=== PATIENT | female | born 1950 | race Caucasian/White ===

== ENCOUNTER 2021-01-12 07:31 | Outpatient (REF) | payer MEDICARE, SELFPAY ==
[2021-01-12 11:28] LABS: Glucose Urine UA NEG (NEG); Leukocyte Esterase Urine NEG (NEG); Nitrite Urine NEG (NEG); Specific Gravity - Urine 1.015 (1.005-1.025); Urine Blood 1+ (NEG); Urine Ketones NEG (NEG); Urine Protein NEG (NEG-TRACE)
[2021-01-12 11:29] LABS: Appearance Urine CLEAR; Color Urine YELLOW
[2021-01-12 11:38] LABS: Squamous Epithelial Cell Urine 1+ /LPF; WBC Urine 0 /HPF (0-4)
[2021-01-12 11:39] LABS: Bacteria Urine TRACE /LPF
[2021-01-12 11:46] LABS: Hematocrit 41.2 % (37-47); Hemoglobin 14.2 g/dl (12.0-16.0); Mean Corpuscular HGB Conc 34.5 g/dl (31.0-35.0); Mean Corpuscular Hemoglobin 31.3 pg (27.0-33.0); Mean Corpuscular Volume 90.7 fL (80-98); Mean Platelet Volume 11.9 fL (9.4-12.3); Platelet Count 233 X10*3/uL (160-400); Red Blood Count 4.54 X10*6/uL (4.20-5.50); Red Cell Distribution Width 12.8 % (11.0-16.0); White Blood Count 5.7 X10*3/uL (4.8-10.8)
[2021-01-12 11:56] LABS: Alanine Aminotransferase 29 U/L (0-31); Albumin Level 4.2 g/dL (3.5-5.0); Alkaline Phosphatase 56 U/L (39-117); Anion Gap 14 (12-20); Aspartate Amino Transferase 33 U/L (5-31); Bilirubin Total 0.8 mg/dL (0.0-1.0); Blood Urea Nitrogen 24 mg/dL (9-16); Calcium 9.3 mg/dL (8.4-10.2); Carbon Dioxide 24 mmol/L (22-29); Chloride 101 mmol/L (96-108); Cholesterol 173 mg/dL; Estimated Glomerular Filt Rate > 60; Glucose Fasting 75 mg/dL (60-99); HDL Cholesterol 73 mg/dL; LDL Cholesterol Calculated 90 mg/dl; Potassium 4.3 mmol/L (3.3-5.1); Sodium 135 mmol/L (135-145); Total Protein 6.3 g/dL (6.5-8.0); Triglycerides 54 mg/dL
[2021-01-12 12:20] LABS: TSH reflex Free T4 1.58 uIU/mL (0.32-4.0); Vitamin D 25-OH Total 26.7 ng/mL (>30)
== END 2021-01-12 07:32 | disposition home or self-care (01) ==
LOC: HO.HMGCLDS 07:31
PROVIDERS: PCP Internal Medicine; Visit Provider Internal Medicine
DX: Z00.00 Encounter for general adult medical examination without abnormal findings (principal); E55.9 Vitamin D deficiency, unspecified; E78.5 Hyperlipidemia, unspecified
CPT/HCPCS: 36415; 80053; 80061; 81001; 82306; 84443; 85027

== ENCOUNTER 2021-01-20 10:19 | Outpatient (REF) | payer MEDICARE, SELFPAY ==
--- NOTE | ~2021-01-20 | US_ITS ---
EXAMINATION: US RETROPERITONEAL COMPLETE (RENAL) CLINICAL INFORMATION: Hematuria, unspecified. COMPARISON: None TECHNIQUE: Real-time imaging of the kidneys and bladder. FINDINGS: RIGHT KIDNEY: 10.6 x 4.7 x 6.4 cm (SAG x AP x TRV). The kidney is normal in size, contour, and echogenicity. Renal cortical thickness is normal. No calculi or focal parenchymal lesions. No hydronephrosis. LEFT KIDNEY: 9.9 x 5.6 x 5.2 cm (SAG x AP x TRV). The kidney is normal in size, contour, and echogenicity. Renal cortical thickness is normal. No calculi or focal parenchymal lesions. No hydronephrosis. There are several non shadowing echogenic foci. BLADDER: Well distended and normal. Bilateral ureteral jets are demonstrated. Prevoid bladder volume is 396 mL. Postvoid bladder volume is 26.9 mL. US/US retroperitoneal comp IMPRESSION: Multiple small echogenic non shadowing foci left kidney. Stones or hydronephrosis seen. Small postvoid residual bladder volume. Normal bilateral ureteral jets seen.
== END 2021-01-20 10:20 | disposition home or self-care (01) ==
LOC: HO.HMGCX 10:19
PROVIDERS: Visit Provider Internal Medicine
DX: R31.9 Hematuria, unspecified (principal)
CPT/HCPCS: 76770

== ENCOUNTER 2021-01-21 06:11 | Outpatient (REF) | payer MEDICARE, SELFPAY ==
[2021-01-21 11:17] LABS: Urine Cytology See Pathology rpt
== END 2021-01-21 06:12 | disposition home or self-care (01) ==
LOC: HO.HMGCLNP 06:11
PROVIDERS: Visit Provider Internal Medicine
DX: R31.9 Hematuria, unspecified (principal)
CPT/HCPCS: 88112

== ENCOUNTER 2021-11-26 09:44 | Outpatient (REF) | payer MEDICARE, SELFPAY ==
--- NOTE | ~2021-11-26 | US_ITS ---
EXAMINATION: US SOFT TISSUE NECK CLINICAL INFORMATION: Left neck mass/lump COMPARISON: None TECHNIQUE: In her touch. Limited ultrasound imaging of left neck was performed.. FINDINGS: There are numerous lymph nodes visualized in the left neck in the area of concern. Some of the lymph nodes have an absent hilum and appear complex and are hypervascular. Most of them are located inferior to the submandibular gland. The largest lymph node measures 1.6 x 0.9 x 1.4 cm. There is small right neck lymph node measuring 1.3 x 0.3 x 0.3 cm. US/US soft tiss head and/or neck IMPRESSION: Abnormal hypervascular left neck lymph nodes. Question inflammatory, infectious or metastatic etiology.
--- NOTE | ~2021-11-26 | XR_ITS ---
EXAMINATION: XR CHEST CLINICAL INFORMATION: Cough. COMPARISON: None TECHNIQUE: 2 views of the chest were obtained. FINDINGS: No significant abnormality is noted involving the heart, lungs, mediastinum, bony thorax or soft tissues. XR/XR chest 2V IMPRESSION: Unremarkable chest examination.
[2021-11-26 10:25] LABS: Binax Internal Control QC Valid; Binax Now Covid-19 Ag Negative (Negative)
[2021-11-26 11:14] LABS: Basophils Absolute Auto 0.1 X10*3/uL (0.0-0.2); Basophils Percent Auto 0.8 % (0-2); Eosinophils Absolute Auto 0.1 X10*3/uL (0.0-0.4); Eosinophils Percent Auto 1.3 % (0-4); Hematocrit 40.7 % (37.0-47.0); Imm Gran Abs Auto 0.03 X10*3/uL (0.00-0.03); Imm Gran Pct Auto 0.4 % (0.0-0.4); Lymphocytes Absolute Auto 1.2 X10*3/uL (1.2-4.9); Lymphocytes Percent Auto 16.3 % (20-40); MANUAL DIFF FLAG NO; Mean Corpuscular HGB Conc 34.4 g/dl (31.0-35.0); Mean Corpuscular Hemoglobin 31.6 pg (27.0-33.0); Mean Corpuscular Volume 91.9 fL (80.0-98.0); Mean Platelet Volume 10.8 fL (9.4-12.3); Monocytes Absolute Auto 0.7 X10*3/uL (0.1-1.2); Monocytes Percent Auto 9.2 % (2-11); Neutrophils Absolute Auto 5.5 x10*3/uL (2.0-8.3); Platelet Count 250 X10*3/uL (160-400); Red Blood Count 4.43 X10*6/uL (4.20-5.50); Red Cell Distribution Width 12.5 % (11.0-16.0); White Blood Count 7.6 X10*3/uL (4.8-10.8)
[2021-11-26 12:04] LABS: C Reactive Protein 1.91 mg/dL (< or = 0.50)
[2021-11-26 12:19] LABS: Erythrocyte Sedimentation Rate 14 MM/HR (0-20)
== END 2021-11-26 09:45 | disposition home or self-care (01) ==
LOC: HO.HMGCX 09:44
PROVIDERS: Visit Provider Physician Assistant Medical
DX: Z20.822 Contact with and (suspected) exposure to COVID-19 (principal); R05.9 Cough, unspecified; R22.1 Localized swelling, mass and lump, neck
CPT/HCPCS: 71046; 76536; 85025; 85652; 86140

== ENCOUNTER 2021-12-08 09:19 | Outpatient (REF) | payer MEDICARE, SELFPAY ==
--- NOTE | ~2021-12-08 | US_ITS ---
EXAMINATION: US SOFT TISSUE NECK CLINICAL INFORMATION: Follow up lymphadenopathy. COMPARISON: Previous ultrasound 11/26/2021. TECHNIQUE: Ultrasound of the neck soft tissues is performed with high- frequency coello-scale imaging and color Doppler. FINDINGS: THYROID BED: There are multiple level 2 lymph nodes in the left neck There is interval decrease in size in left neck lymphadenopathy compared to previous exam. Largest lymph node measures 1.3 x 0.7 x 1.1 cm in sagittal AP and transverse dimension compared to 1.6 x 0.9 x 1.4 cm. Lymph nodes again demonstrate loss of normal fatty hilum and preserved normal hilar flow. US/US soft tiss head and/or neck IMPRESSION: Interval decrease in left cervical lymphadenopathy compared to 11/26/2021 exam.
== END 2021-12-08 09:20 | disposition home or self-care (01) ==
LOC: HO.HMGCX 09:19
PROVIDERS: Visit Provider Physician Assistant Medical
DX: R22.1 Localized swelling, mass and lump, neck (principal)
CPT/HCPCS: 76536

== ENCOUNTER 2022-04-07 07:30 | Outpatient (REF) | payer MEDICARE, SELFPAY ==
[2022-04-07 11:27] LABS: MANUAL DIFF FLAG NO
[2022-04-07 11:47] LABS: Basophils Absolute Auto 0.1 X10*3/uL (0.0-0.2); Basophils Percent Auto 0.9 % (0-2); Eosinophils Absolute Auto 0.1 X10*3/uL (0.0-0.4); Eosinophils Percent Auto 1.4 % (0-4); Hematocrit 41.1 % (37.0-47.0); Hemoglobin 14.7 g/dl (12.0-16.0); Imm Gran Abs Auto 0.03 X10*3/uL (0.00-0.03); Imm Gran Pct Auto 0.5 % (0.0-0.4); Lymphocytes Percent Auto 16.2 % (20-40); Mean Corpuscular HGB Conc 35.8 g/dl (31.0-35.0); Mean Corpuscular Hemoglobin 32.2 pg (27.0-33.0); Mean Corpuscular Volume 90.1 fL (80.0-98.0); Mean Platelet Volume 10.8 fL (9.4-12.3); Monocytes Absolute Auto 0.4 X10*3/uL (0.1-1.2); Neutrophils Absolute Auto 4.4 x10*3/uL (2.0-8.3); Platelet Count 260 X10*3/uL (160-400); Red Blood Count 4.56 X10*6/uL (4.20-5.50); Red Cell Distribution Width 12.6 % (11.0-16.0); White Blood Count 5.9 X10*3/uL (4.8-10.8)
[2022-04-07 14:23] LABS: TSH reflex Free T4 1.75 uIU/mL (0.32-4.0); Vitamin D 25-OH Total 36.2 ng/mL (>30)
[2022-04-07 14:40] LABS: Alanine Aminotransferase 23 U/L (0-31); Albumin Level 4.3 g/dL (3.5-5.0); Alkaline Phosphatase 56 U/L (39-117); Anion Gap 14 (12-20); Aspartate Amino Transferase 25 U/L (5-31); Bilirubin Total 0.6 mg/dL (0.0-1.0); Blood Urea Nitrogen 19 mg/dL (9-16); Calcium 9.2 mg/dL (8.4-10.2); Carbon Dioxide 25 mmol/L (22-29); Chloride 102 mmol/L (96-108); Cholesterol 203 mg/dL; Estimated Glomerular Filt Rate 58; Glucose Fasting 90 mg/dL (60-99); HDL Cholesterol 71 mg/dL; LDL Cholesterol Calculated 118 mg/dl; Potassium 4.5 mmol/L (3.3-5.1); Sodium 136 mmol/L (135-145); Total Protein 6.4 g/dL (6.5-8.0); Triglycerides 74 mg/dL
== END 2022-04-07 07:31 | disposition home or self-care (01) ==
LOC: HO.HMGCLDS 07:30
PROVIDERS: PCP Internal Medicine; Visit Provider Internal Medicine
DX: Z00.00 Encounter for general adult medical examination without abnormal findings (principal); E55.9 Vitamin D deficiency, unspecified; E78.5 Hyperlipidemia, unspecified
CPT/HCPCS: 36415; 80053; 80061; 82306; 84443; 85025

== ENCOUNTER → 2023-01-25 11:23 | Outpatient (BNVA) | payer MEDICARE, SELFPAY | PROVIDERS: PCP Internal Medicine; Visit Provider Internal Medicine | DX: Z12.11 Encounter for screening for malignant neoplasm of colon (principal); K76.89 Other specified diseases of liver; K86.2 Cyst of pancreas | CPT/HCPCS: 99202 ==

== ENCOUNTER 2023-04-06 10:50 | Outpatient (REF) | payer MEDICARE, SELFPAY ==
--- NOTE | ~2023-04-06 | MR_ITS ---
EXAMINATION: MR ABDOMEN WITHOUT AND WITH CONTRAST CLINICAL INFORMATION: Follow up liver and pancreatic lesions. COMPARISON: Outside facility MRI 09/24/2021 and 09/18/2020. TECHNIQUE: MR abdomen was performed without and with use of 6 mL intravenous Gadavist gadolinium contrast. Postcontrast images are performed in multiphase dynamic sequences. Imaging was performed in 3 planes. FINDINGS: LUNG BASES: The visualized lung bases are unremarkable. LIVER, GALLBLADDER, AND BILIARY TREE: The liver is almost entirely replaced by lesions. A dominant approximately 6.3 cm mass in segments 7/8 is not significantly changed in size dating back to 09/18/2020, with a prior biopsy compatible with focal nodular hyperplasia. Innumerable additional arterially hyperenhancing lesions which become essentially isointense to surrounding parenchyma on follow up enhancement as well as precontrast images, are favored to represent additional fibronodular hyperplasia, difficult to individually characterize due to their number although grossly unchanged compared to 09/18/2020; not well seen on 09/24/2021 likely due to differences in timing of the arterial sequence. Redemonstration of two well-defined, T2 bright lesions measuring 1.3 cm on axial image 9 and 1 cm on axial image 10, series 4 with progressive enhancement, favored to represent hemangiomas. A few scattered subcentimeter avascular simple cysts are noted. PANCREAS: A 2.7 cm septated, T2 bright, cystic-appearing lesion in the pancreatic body has increased in size from 2 cm on 09/24/2021. This lesion is in very close proximity with the main duct with apparent communication on axial image 15, series 4. The main duct is within the upper limits of normal measuring 0.4 cm, which has increased from 0.2 cm on 09/24/2021. A few additional sub-6 mm T2 bright cystic- appearing lesions, for instance measuring 0.5 cm in the pancreatic tail, are not convincingly changed. On postcontrast images, no clear associated enhancement is noted within these observations, although evaluation is limited due to motion. SPLEEN: Normal. ADRENAL GLANDS: Normal. KIDNEYS AND URETERS: Small subcentimeter T2 bright cysts for which no imaging follow-up is recommended. GASTROINTESTINAL TRACT: No bowel obstruction. No ascites or fluid collection. ABDOMINAL WALL: No significant hernia is appreciated. LYMPH NODES: No lymphadenopathy. VASCULAR: Unremarkable. OSSEOUS STRUCTURES: Marrow signal normal. Degenerative changes of the spine. MR/MR abdomen wo/w con IMPRESSION: 1. A 2.7 cm septated, cystic-appearing lesion in the pancreatic body has increased in size from 2 cm on 09/24/2021. The main pancreatic duct is within the upper limits of normal, which has increased from 0.2 cm. In view of interval changes, GI referral for consideration of endoscopic ultrasound and fine-needle aspiration is recommended. 2. The liver is almost entirely replaced by lesions, suggesting a combination of predominantly fibronodular hyperplasia with a few cysts and hemangiomas. These are not convincingly changed, although are far too numerous to individually characterize, continued follow up is recommended. Consider future imaging with Eovist.
== END 2023-04-06 10:51 | disposition home or self-care (01) ==
LOC: HO.MRI 10:50
PROVIDERS: PCP Internal Medicine; Visit Provider Internal Medicine
DX: K76.89 Other specified diseases of liver (principal)
CPT/HCPCS: 74183; A9585

== ENCOUNTER 2023-04-13 07:18 | Outpatient (REF) | payer MEDICARE, SELFPAY ==
[2023-04-13 11:32] LABS: MANUAL DIFF FLAG NO
[2023-04-13 11:46] LABS: Basophils Absolute Auto 0.1 X10*3/uL (0.0-0.2); Basophils Percent Auto 0.9 % (0-2); Eosinophils Absolute Auto 0.1 X10*3/uL (0.0-0.4); Eosinophils Percent Auto 1.5 % (0-4); Hematocrit 40.9 % (37.0-47.0); Hemoglobin 14.2 g/dl (12.0-16.0); Imm Gran Abs Auto 0.02 X10*3/uL (0.00-0.03); Imm Gran Pct Auto 0.3 % (0.0-0.4); Lymphocytes Absolute Auto 1.1 X10*3/uL (1.2-4.9); Mean Corpuscular HGB Conc 34.7 g/dl (31.0-35.0); Mean Corpuscular Hemoglobin 31.8 pg (27.0-33.0); Mean Corpuscular Volume 91.7 fL (80.0-98.0); Mean Platelet Volume 11.2 fL (9.4-12.3); Monocytes Absolute Auto 0.4 X10*3/uL (0.1-1.2); Monocytes Percent Auto 5.6 % (2-11); Neutrophils Absolute Auto 5.2 x10*3/uL (2.0-8.3); Neutrophils Percent Auto 75.7 % (45-73); Platelet Count 219 X10*3/uL (160-400); Red Blood Count 4.46 X10*6/uL (4.20-5.50); Red Cell Distribution Width 12.5 % (11.0-16.0); White Blood Count 6.8 X10*3/uL (4.8-10.8)
[2023-04-13 12:22] LABS: Alanine Aminotransferase 20 U/L (0-31); Alkaline Phosphatase 52 U/L (39-117); Anion Gap 13 (12-20); Aspartate Amino Transferase 24 U/L (5-31); Bilirubin Total 0.8 mg/dL (0.0-1.0); Blood Urea Nitrogen 18 mg/dL (9-16); Calcium 9.4 mg/dL (8.4-10.2); Carbon Dioxide 24 mmol/L (22-29); Chloride 102 mmol/L (96-108); Cholesterol 180 mg/dL; Estimated Glomerular Filt Rate > 60; Glucose Fasting 77 mg/dL (60-99); HDL Cholesterol 75 mg/dL; LDL Cholesterol Calculated 90 mg/dl; Potassium 4.1 mmol/L (3.3-5.1); Sodium 135 mmol/L (135-145); Total Protein 6.1 g/dL (6.5-8.0); Triglycerides 77 mg/dL
== END 2023-04-13 07:19 | disposition home or self-care (01) ==
LOC: HO.HMGCLDS 07:18
PROVIDERS: PCP Internal Medicine; Visit Provider Internal Medicine
DX: Z00.00 Encounter for general adult medical examination without abnormal findings (principal); E78.5 Hyperlipidemia, unspecified; K76.89 Other specified diseases of liver
CPT/HCPCS: 36415; 80053; 80061; 84443; 85025

== ENCOUNTER 2023-04-15 08:51 | Outpatient (AMB) | payer MEDICARE, SELFPAY ==
--- NOTE | 2023-04-15 08:54 | MHC.PC.OV ---
Intake Visit Reasons: PE Allergies Sulfa (Sulfonamide Antibiotics) Allergy (Mild, Verified 01/25/23 11:30) Rash naproxen Adverse Reaction (Mild, Verified 01/25/23 11:30) stomach ache. Tobacco use date assessed: 11/30/21 [facility] Medical History Annual physical exam Hematuria Hyperlipidemia Pain in thumb joint with movement of left hand Recurrent cancer of left breast Vitamin D deficiency Surgical History H/O colonoscopy S/P lumpectomy, left breast Family History Father No problems noted. Mother No problems noted. Social History Housing: Condominium Alcohol intake: current Alcohol intake frequency: a few times a month Patient Tobacco Use Status: Never used Tobacco e-Cigarette/Vaping Use: Never Used Current occupational status: retired Physical exam (Primary Care) Tobacco/Smoking Status: Tobacco use Status Tobacco use date assessed 11/30/21 11/30/21 12:11 Patient Tobacco Use Status Never used Tobacco 11/30/21 12:11 e-Cigarette/Vaping Use Never Used 11/30/21 12:11 Coding Diagnoses
[2023-04-15 08:56] VITALS: BP 132/72; PULSE 80; O2SAT 97; BMI 24.1
--- NOTE | 2023-04-15 09:01 | A.OFFVIS_ITS ---
Intake Vital Signs 04/15/23 08:56 04/15/23 09:08 Height 5 ft 2 in Weight 132 lb BMI 24.1 24.1 BP 132/72 Blood Pressure Location Rt brachial Position Sitting Pulse 80 Pulse Source Pulse Oximeter Pulse Oximetry (%) 97 Oxygen Delivery Method Room Air Intake Visit Reasons: Encounter for initial annual wellness visit (AWV) in Medicare patient Allergies Sulfa (Sulfonamide Antibiotics) Allergy (Mild, Verified 04/15/23 09:03) Rash naproxen Adverse Reaction (Mild, Verified 04/15/23 09:03) stomach ache. Medication List - Last Reconciled 04/15/23 by Marry Argueta MD anastrozole mg PO HPI HPI Comments History of Present Illness Details Pt is for annual visit. Pt c/o persistent cough intermittent, no sputum, no chest pain, SOB for 1 year. Patient will follow-up with GI for growing pancreatic cyst from 2 cm to 2.7 cm on the most recent MRI. She follows up with Oncology annually for history of breast CA. Initiated the conversation about Advanced Directives. Advanced Directives help? patients prepare for current and future decisions about their medical treatment? and place of care. Discussed with patient that it is a process where a patients? current condition and prognosis are reviewed, their wishes for information? regarding their illness are elicited, and likely medical dilemmas are presented? and options discussed. The form can be amended as needed, reviewed yearly and? make changes as needed IPPE/AWV ? year old presents? for her ? Annual? Wellness Visit, initial visit.? Medical / Social History Reviewed? Past Medical History ?Yes? . ? [place]? of Care / Care Team list updated ?Yes . ? Surgical/Hospitalization? History ?Yes . ? Current Medications? (including OTC and supplements) ?Yes . ? Family History ?Yes? . ? Tobacco? Control form ?Yes . ? AUDIT-C (Alcohol use) form? ?Yes . ? Illicit drug use in Social? History ?Yes . ? Current diagnosis of? depression? ?No ? Appropriate PHQ2/PHQ9? completed ?Yes . ? Data entered by ?Medical? [employer] Worker and reviewed by provider ? Fall Risk ? Fall? History? Have you had any falls with? injury in the past year? ?No . ? Have you had two or more? falls in the past year? ?No . ? Fall Risk Assessment: ?No? falls in the past year . ? HRA filled out by? the patient, reviewed by Provider and scanned. ? IPPE/AWV ? Balance? [place]? ?Yes . ? Tandem? walk ?Yes . ? Walk and? Turn ?Yes . ? Rise from? sit to stand ?Yes . ?Vision? Corrective? lens ?Yes ? Vision? screen ? Up-to-date, has an appointment [] for vision? screening and glaucoma screening ?Hearing? Whisper? test ?pass .? Initiated the conversation about Advanced Directives. Advanced Directives help? patients prepare for current and future decisions about their medical treatment? and place of care. Discussed with patient that it is a process where a patients? current condition and prognosis are reviewed, their wishes for information? regarding their illness are elicited, and likely medical dilemmas are presented? and options discussed. The form can be amended as needed, reviewed yearly and? make changes as needed Written? Plan?Completed. See Patient? Documents. [facility] Medical History (Updated 04/15/23 @ 09:46 by Marry Argueta MD) Hematuria Hyperlipidemia Pain in thumb joint with movement of left hand Recurrent cancer of left breast Vitamin D deficiency Surgical History H/O colonoscopy S/P lumpectomy, left breast Family History Father No problems noted. Mother No problems noted. Social History Housing: Condominium Alcohol intake: current Alcohol intake frequency: a few times a month Patient Tobacco Use Status: Never used Tobacco e-Cigarette/Vaping Use: Never Used Current occupational status: retired Questionnaire Medicare Wellness Checkup [age] What gender do you identify with?: female During the past 4 weeks, how much have you been bothered by emotional problems such as feeling anxious, depressed, irritable, sad or downhearted, and blue?: not at all During the past 4 weeks, has your physical & emotional health limited your social activities with family, friends, neighbors, or groups?: not at all During the past 4 weeks, how much bodily pain have you generally had?: no pain During the past 4 weeks, was someone available to help you if you needed & wanted help?: yes, as much as I wanted During the past 4 weeks, what was the hardest physical activity you could do for at least 2 minutes?: very heavy Can you get to places out of walking distance without help? (For eg., can you travel alone on buses, taxis or drive your car?): Yes Can you go shopping for groceries or clothes without someone's help?: Yes Can you prepare your own meals?: Yes Can you do your housework without help?: Yes Because of any health problems, do you need the help of another person with your personal care needs such as eating, bathing, dressing or getting around the house?: No Can you handle your own money without help?: Yes During the past 4 weeks, how would you rate your health in general?: excellent During the past 4 weeks how have things been going for you?: very well; could hardly better Are you having difficulties driving your car?: no Do you always fasten your seat belt when you are in a car?: yes, usually During past 4 weeks, have you been bothered by the following: never: Falling or dizzy when standing up, Sexual problems?, Trouble eating well?, Teeth or denture problems?, Problems using the telephone? and Tiredness or fatigue? Have you fallen 2 or more times in the past year?: No Are you afraid of falling?: No Are you a smoker?: no During the past 4 weeks, how many drinks of wine, beer, or other alcoholic beverages did you have?: 2-5 drinks per week Do you exercise for about 20 minutes 3 or more times a week?: yes, most of the time Have you been given information to help with the following?: no: Hazards in your house that might hurt you? and no: Keeping track of your medications? How often do you have trouble taking medicines the way you have been told to take them?: I always take medicine as prescribed How confident are you that you can control & manage most of your health problems?: very confident What is your race?: White Mini Mental State Exam (MMSE) Orientation What is the (year) (season) (date) (day) (month)?: year, season, date, day and month Where are we (state) (county) (town or city) (hospital) (floor)?: state, county, town or city, hospital/clinic and floor Registration Name of 3 unrelated objects clearly and slowly, then ask patient to repeat all 3 of them. (1st repeat determines score. Make sure they can repeat all three): object 1, object 2 and object 3 Attention & Calculation (CHOOSE ONE) Ask pt to begin with 100 & count backward by 7. Stop after 5 repeats. If pt cannot ask them to spell the word WORLD backward.: 93 Spell WORLD backwards (DLROW): 5 letters Recall Ask patient to repeat the 3 items from question #3.: object 1, object 2 and object 3 Language Show patient a wristwatch & ask what it is. Repeat for pencil.: watch and pencil Ask the patient to repeat the phrase 'No ifs, ands, or buts' after you.: correct Ask the patient to 'take a piece of paper with their right hand' 'fold paper in half' 'place paper on floor': take paper in right hand, fold paper in half and place paper on floor Print the sentence 'CLOSE YOUR EYES' on a piece. If patient actually closes eyes then score.: followed written direction Give patient a blank piece of paper & ask to write a sentence. Score if it contains a noun & verb.: sentence contains subject and verb Score Score: 30 Activity of Daily Living Bathing - sponge bath, tub bath or shower: receives no assistance (gets in/out by self, if usual bathing means Dressing - getting clothes from closets & drawers, including inner/outer garments & fasteners.: gets clothes & gets completely dressed without help Toileting - going to the 'toilet room' for urine/bowel elimination & cleaning self/arranging clothes: goes to toilet room, cleans self, arranges clothes without help Transfer: moves in & out of bed and chair without help (may use support object) Continence: controls urination/bowel movements completely by self Feeding: feeds self without help Total Score: 0 Information obtained from: patient Using telephone: independent Traveling: independent Shopping: independent Preparing meals: independent Housework: independent Taking medicine: independent Managing money: independent PHQ-9 Over the last 2 weeks, how often have you been bothered by any of the following problems? 1. Little interest or pleasure in doing things: not at all 2. Feeling down, depressed, or hopeless: not at all 3. Trouble falling or staying asleep, or sleeping too much: not at all 4. Feeling tired or having little energy: not at all 5. Poor appetite or overeating: not at all 6. Feeling bad about yourself - or that you are a failure or have let yourself or your family down: not at all 7. Trouble concentrating on things, such as reading the newspaper or watching television: not at all 8. Moving or speaking so slowly that other people could have noticed. Or the opposite - being so fidgety or restless that you have been moving around a lot more than usual: not at all 9. Thoughts that you would be better off or of hurting yourself in some way: not at all Total score: 0 Depression Screening Interpretation: Negative Source: Developed by Drs. Devan Sanches, Agnes Goetz, Cristhian Lezama and colleagues, with an educational janet from [employer]. Review of Systems Const All systems reviewed & are unremarkable except as noted in HPI and below Reports no additional complaints Eyes Reports no additional complaints ENT Reports no additional complaints Card Reports no additional complaints Resp Reports no additional complaints GI Reports no additional complaints Reports no additional complaints Musc Reports no additional complaints Physical Exam Vital Signs: Last Vital Signs Pulse 80 04/15/23 08:56 BP 132/72 04/15/23 08:56 Pulse Ox 97 04/15/23 08:56 Oxygen Delivery Method Room Air 04/15/23 08:56 BMI result Body Mass Index 24.1 Const General: no acute distress HEENT Head: Yes normal to inspection Ears: hearing grossly normal bilaterally General nose exam: Abnormal mucous membranes and turbinates present erythematous Face and sinus: Yes normal facial exam Throat: Yes postnasal drainage Eyes General: appearance normal, both eyes and all related structures Neck Neck: Yes no lymphadenopathy and Yes supple Resp Effort & Inspection: normal respiratory effort Auscultation: clear to auscultation bilaterally Cardio Rhythm: regular rhythm Heart sounds: S1 normal heart sound present and S2 normal heart sound present GI Inspection: Yes normal to inspection Palpation (GI): Soft to palpation Percussion: Yes normal to percussion Auscultation: normal bowel sounds Extrem General: Yes no clubbing, cyanosis or edema Assessment & Plan Assessment & Plan (1) Cough: Code(s): R05.9 - Cough, unspecified Plan: For chronic cough and postnasal drip check chest x-ray, patient was advised to use saline nasal spray and Flonase and Claritin if the symptoms persist. Patient's planning to schedule an appointment with the religion teacher (2) Colon cancer screening: Comment: due in 2023 f/u Dr. Delgado Code(s): Z12.11 - Encounter for screening for malignant neoplasm of colon (3) Annual physical exam: Code(s): Z00.00 - Encounter for general adult medical examination without abnormal findings Plan: Well-balanced diet regular physical activity discussed with the patient (4) Hyperlipidemia: Code(s): E78.5 - Hyperlipidemia, unspecified Plan: Continue low-cholesterol diet (5) S/P lumpectomy, left breast: Comment: left breat lumpectomy for stage 1 breast ca 2012, took Anastazole for 5 years , Code(s): Z98.890 - Other specified postprocedural states Plan: Follow-up with oncology (6) Pancreas cyst: Comment: MR 7/ 2.7 cm increase from 2 cm in 2021, hx of endo bx 2011 ? Code(s): K86.2 - Cyst of pancreas Plan: Follow-up with [facility] (7) Vitamin D deficiency: Code(s): E55.9 - Vitamin D deficiency, unspecified Orders: Orders XR chest 1V Today R05.9 - Cough, unspecified Comprehensive [place]. Panel Fast 365 Days E55.9 - Vitamin D deficiency, unspecified, E78.5 - Hyperlipidemia, unspecified, Z00.00 - Encounter for general adult medical examination without abnormal findings Lipid Panel 365 Days E55.9 - Vitamin D deficiency, unspecified, E78.5 - Hyperlipidemia, unspecified, Z00.00 - Encounter for general adult medical examination without abnormal findings Vitamin D 25-OH Total 365 Days E55.9 - Vitamin D deficiency, unspecified, E78.5 - Hyperlipidemia, unspecified, Z00.00 - Encounter for general adult medical examination without abnormal findings Complete Blood Count Auto Diff 365 Days E55.9 - Vitamin D deficiency, unspecified, E78.5 - Hyperlipidemia, unspecified, Z00.00 - Encounter for general adult medical examination without abnormal findings Quality Reporting (2019) Depression/Bipolar (159/160/161/177) PHQ-9: Total score: 0 Coding Level of Care Code Medicare Subsequent (G0439) Diagnoses Cough R05.9 Colon cancer screening Z12.11 Annual physical exam Z00.00 Hyperlipidemia E78.5 S/P lumpectomy, left breast Z98.890 Pancreas cyst K86.2 Vitamin D deficiency E55.9 CPT Codes Advance Care Planning - Time spent: 1-15 minutes, not on file ([id number]) Advance Care Planning Advance Care Planning discussion: Exists, not on file Forms completed: Health Care Proxy Time spent: 1-15 minutes, not on file
[2023-04-15 09:08] VITALS: BMI 24.1
== END 2023-04-15 09:44 | disposition home or self-care (01) ==
PROVIDERS: PCP Internal Medicine; Visit Provider Internal Medicine
DX: Z00.00 Encounter for general adult medical examination without abnormal findings (principal); E55.9 Vitamin D deficiency, unspecified; Z98.890 Other specified postprocedural states; R05.9 Cough, unspecified; Z12.11 Encounter for screening for malignant neoplasm of colon; E78.5 Hyperlipidemia, unspecified; K86.2 Cyst of pancreas
CPT/HCPCS: 1124F; G0439

== ENCOUNTER 2023-04-21 11:11 | Outpatient (REF) | payer MEDICARE, SELFPAY ==
--- NOTE | ~2023-04-21 | XR_ITS ---
EXAMINATION: XR CHEST 2 VIEW CLINICAL INFORMATION: Cough COMPARISON: 11/26/2021 TECHNIQUE: PA and lateral views of the chest obtained. FINDINGS: The lungs are clear. There are no pleural effusions. The cardiomediastinal silhouette is normal. Surgical clips are evident in the left chest wall and axilla, and the left breast is surgically absent. There are degenerative changes of both shoulders. XR/XR chest 2V IMPRESSION: No acute cardiopulmonary disease.
== END 2023-04-21 11:12 | disposition home or self-care (01) ==
LOC: HO.HMGCX 11:11
PROVIDERS: PCP Internal Medicine; Visit Provider Internal Medicine
DX: R05.9 Cough, unspecified (principal)
CPT/HCPCS: 71046

== ENCOUNTER 2023-04-27 10:19 | Outpatient (AMB) | payer MEDICARE, SELFPAY ==
--- NOTE | 2023-04-27 10:23 | MHC.OFFVIS ---
Intake Vital Signs 04/27/23 10:26 Height 5 ft 2 in Weight 133 lb 2.547 oz BMI 24.4 BP 167/78 H Blood Pressure Location Rt brachial Position Sitting Pulse 74 Pulse Source Pulse Oximeter Pulse Oximetry (%) 98 Oxygen Delivery Method Room Air Intake Visit Reasons: 3 month fu Intake Note: Pt presents to the office today for a 3 month follow up. Pt states she is feeling good overall but feels bloated almost all the time. Pt denies any NVD. Allergies Sulfa (Sulfonamide Antibiotics) Allergy (Mild, Verified 04/27/23 10:28) Rash naproxen Adverse Reaction (Mild, Verified 04/27/23 10:28) stomach ache. HPI HPI Comments History of Present Illness Details 72 y.o F with PMH of breast ca on anastrazole, reported liver and pancreas cyst, personal hx of polyps who is here for follow up. 01/25/23: Currently no gastrointestinal sx to include abd pain, N,V,D. Here for primarily two things: Liver and pancreas cyst - reported hx. Will obtain records from [facility]. Reportedly due for surveillance scan. CRC screening - due in 2023. Will get records. MRI 04/06/23: PANCREAS: A 2.7 cm septated, T2 bright, cystic-appearing lesion in the pancreatic body has increased in size from 2 cm on 09/24/2021. This lesion is in very close proximity with the main duct with apparent communication on axial image 15, series 4. The main duct is within the upper limits of normal measuring 0.4 cm, which has increased from 0.2 cm on 09/24/2021. A few additional sub-6 mm T2 bright cystic- appearing lesions, for instance measuring 0.5 cm in the pancreatic tail, are not convincingly changed. On postcontrast images, no clear associated enhancement is noted within these observations, although evaluation is limited due to motion.? 04/27/23: MRI results reviewed. Increase in cystic pancreatic lesion size to 2.7 cm from 2 cm in Sep 2021 now with PD dilation too. Reports a remote hx of having a biopsy 10 years ago through IR at [facility] and pt thinks that may have been the ???pancreas cyst biopsy however from previous records from [facility], [place], liver bx ([facility]) history is reported (and seems more likely). [facility] Medical History Hematuria Hyperlipidemia Pain in thumb joint with movement of left hand Recurrent cancer of left breast Vitamin D deficiency Surgical History H/O colonoscopy S/P lumpectomy, left breast Family History Father No problems noted. Mother No problems noted. Social History Housing: Condominium Alcohol intake: current Alcohol intake frequency: a few times a month Patient Tobacco Use Status: Never used Tobacco e-Cigarette/Vaping Use: Never Used Current occupational status: retired Review of Systems Const All systems reviewed & are unremarkable except as noted in HPI and below Physical Exam Vital Signs: Last Vital Signs Pulse 74 04/27/23 10:26 BP 167/78 H 04/27/23 10:26 Pulse Ox 98 04/27/23 10:26 Oxygen Delivery Method Room Air 04/27/23 10:26 BMI result Body Mass Index 24.4 Gen appear: NAD HEENT: nonicteric, no cervical lymphadenopathy Chest: CTA CVS: Regular S1/S2 Abd: soft, nontender, nondistended, bowel sounds + Ext: no peripheral edema Neuro: A/Ox3, noted to move all extremities spontaneously Psych: interacting appropriately Assessment & Plan Assessment & Plan (1) Pancreas cyst: Code(s): K86.2 - Cyst of pancreas Plan: Reviewed with the pt that due to significant increase in size with associated PD dilation would recommend further evaluation with EUS +/- FNA. Ddx include MCN vs IPMN vs SCA. Request has already been sent out to [facility]. Pt advised to call us if does not hear from their office in a few weeks. (2) Colon cancer screening: Code(s): Z12.11 - Encounter for screening for malignant neoplasm of colon Plan: Hx of 4 mm T.A in 2019. Repeat colo due in 2023. Plan Follow up in 6 months Coding Level of Care Code Est Pt Level 4 (52762) Diagnoses Pancreas cyst K86.2 Colon cancer screening Z12.11
[2023-04-27 10:26] VITALS: BP 167/78; PULSE 74; O2SAT 98; BMI 24.4
== END 2023-04-27 11:33 | disposition home or self-care (01) ==
PROVIDERS: PCP Internal Medicine; Visit Provider Internal Medicine
DX: K86.2 Cyst of pancreas (principal); Z12.11 Encounter for screening for malignant neoplasm of colon
CPT/HCPCS: 99214

== ENCOUNTER → 2023-04-27 10:19 | Outpatient (BNVA) | payer MEDICARE, SELFPAY | PROVIDERS: PCP Internal Medicine; Visit Provider Internal Medicine | DX: K86.2 Cyst of pancreas (principal); Z86.010 Personal history of colon polyps | CPT/HCPCS: 99212 ==

== ENCOUNTER 2023-06-10 09:25 | Outpatient (AMB) | payer MEDICARE, SELFPAY ==
[2023-06-10 09:26] VITALS: BP 122/70; PULSE 72; O2SAT 99; BMI 24.1
--- NOTE | 2023-06-10 09:26 | MHC.PC.OV ---
Vital Signs 06/10/23 09:26 Height 5 ft 2 in Weight 132 lb BMI 24.1 BP 122/70 Blood Pressure Location Rt brachial Position Sitting Pulse 72 Pulse Source Pulse Oximeter Pulse Oximetry (%) 99 Oxygen Delivery Method Room Air Intake Visit Reasons: Cataract Surgery Right 06/15/23-Left 06/29/23 Intake Note: Pt is here today for a pre op visit. Pt is having cataract surgery on 06/15/[address] Rain. Allergies Sulfa (Sulfonamide Antibiotics) Allergy (Mild, Verified 06/10/23 09:30) Rash naproxen Adverse Reaction (Mild, Verified 06/10/23 09:30) stomach ache. Tobacco use date assessed: 06/10/23 Fall risk assessment: No Falls in past year Last assessed Fall Risk: 06/10/23 Dental Screening Dental Screen Date: 06/10/23 Did you have a dental visit in the last 12 months?: Yes Did you have a dental problem in the last 6 months where you did not have access to dental care?: No Was dental information given to patient?: Patient has dentist HPI Cataract Surgery Right 06/15/23-Left 06/29/23 HPI Details PATIENT PRESENTS FOR PREOP FOR CATARACT SURGERY. She denies complaints. [facility] Medical History Hematuria Hyperlipidemia Pain in thumb joint with movement of left hand Recurrent cancer of left breast Vitamin D deficiency Surgical History H/O colonoscopy S/P lumpectomy, left breast Family History Father No problems noted. Mother No problems noted. Social History Housing: Condominium Alcohol intake: current Alcohol intake frequency: a few times a month Patient Tobacco Use Status: Never used Tobacco e-Cigarette/Vaping Use: Never Used Current occupational status: retired Cognitive needs: No Hearing needs: No Vision needs: No Questionnaire AUDIT C Alcohol Use Questionnaire (AUDIT-C) 1. How often do you have a drink containing alcohol?: 2-4 times a month 2. How many drinks containing alcohol do you have on a typical day when you are drinking?: 1 or 2 3. How often do you have six or more drinks on one occasion?: Never Total Score: 2 JONELLE-7 AMB Questionnaire JONELLE-7 Feeling nervous, anxious, or on edge: 0 = Not at all Not being able to stop or control worryin = Not at all Worrying too much about different things: 0 = Not at all Trouble relaxin = Not at all Being so restless that it is hard to sit still: 0 = Not at all Becoming easily annoyed or irritable: 0 = Not at all Feeling afraid as if something awful might happen: 0 = Not at all Total JONELLE-7 score (0-4 normal; 5-9 mild; 10-14 moderate; 15-21 severe): 0 Source: Developed by Drs. Devan Sanches, Agnes Goetz, Cristhian Lezama and colleagues, with an educational janet from [employer]. Review of Systems Const All systems reviewed & are unremarkable except as noted in HPI and below Reports no additional complaints Eyes Reports no additional complaints ENT Reports no additional complaints Card Reports no additional complaints Resp Reports no additional complaints GI Reports no additional complaints Reports no additional complaints Physical exam (Primary Care) Vital Signs: Last Vital Signs Pulse 72 06/10/23 09:26 BP 122/70 06/10/23 09:26 Pulse Ox 99 06/10/23 09:26 Oxygen Delivery Method Room Air 06/10/23 09:26 BMI result Body Mass Index 24.1 Tobacco/Smoking Status: Tobacco use Status Tobacco use date assessed 06/10/23 06/10/23 09:31 Patient Tobacco Use Status Never used Tobacco 06/10/23 09:31 e-Cigarette/Vaping Use Never Used 06/10/23 09:28 Const General: no acute distress HENMT Head: Yes normal to inspection Face and sinus: Yes normal facial exam Neck Neck: Yes supple Resp Effort & Inspection: normal respiratory effort Auscultation: clear to auscultation bilaterally Cardio Rhythm: regular rhythm Heart sounds: S1 normal heart sound present and S2 normal heart sound present GI Inspection: Yes normal to inspection Assessment and Plan Assessment & Plan (1) Cataract: Code(s): H26.9 - Unspecified cataract Plan: Patient is medically cleared for cataract surgery Coding Level of Care Code Est Pt Level 3 (57170) Diagnoses Cataract H26.9
== END 2023-06-10 09:54 | disposition home or self-care (01) ==
PROVIDERS: PCP Internal Medicine; Visit Provider Internal Medicine
DX: H26.9 Unspecified cataract (principal)
CPT/HCPCS: 99213

== ENCOUNTER 2023-08-25 10:20 | Outpatient (AMB) | payer MEDICARE, SELFPAY ==
[2023-08-25 10:22] VITALS: BP 136/78; PULSE 76; O2SAT 97; BMI 24.3
--- NOTE | 2023-08-25 10:22 | A.OFFPC_ITS ---
Vital Signs 08/25/23 10:22 Height 5 ft 2 in Weight 133 lb BMI 24.3 BP 136/78 Blood Pressure Location Rt brachial Position Sitting Pulse 76 Pulse Source Pulse Oximeter Pulse Oximetry (%) 97 Oxygen Delivery Method Room Air Intake Visit Reasons: 2 weeks Left Hand/Arm Swollen Intake Note: pt is here for 2 week f/u left hand and arm swelling,3x weeks Outside Medical Sales Representative Required: No Accompanied by: Self / Same As Patient Allergies Sulfa (Sulfonamide Antibiotics) Allergy (Mild, Verified 08/25/23 10:23) Rash naproxen Adverse Reaction (Mild, Verified 08/25/23 10:23) stomach ache. Medication List - Last Reconciled 08/25/23 by Marry Argueta MD anastrozole mg PO Tobacco use date assessed: 06/10/23 Fall risk assessment: No Falls in past year Last assessed Fall Risk: 08/25/23 Dental Screening Dental Screen Date: 08/25/23 Did you have a dental visit in the last 12 months?: Yes Did you have a dental problem in the last 6 months where you did not have access to dental care?: No Was dental information given to patient?: Patient has dentist HPI 2 weeks Left Hand/Arm Swollen HPI Details Patient complains of left upper extremity swelling slight discomfort and tightness for 2 weeks. Patient has been working out at the gym lifting weights. She had left breast lumpectomy and L axillary lymph nodes resection in 2019. Patient had negative mammogram and left axillary ultrasound last month. [facility] Medical History Pain in thumb joint with movement of left hand Hematuria Recurrent cancer of left breast Vitamin D deficiency Hyperlipidemia Surgical History S/P lumpectomy, left breast H/O colonoscopy Family History Father No problems noted. Mother No problems noted. Social History Housing: Condominium Alcohol intake: current Alcohol intake frequency: a few times a month Patient Tobacco Use Status: Never used Tobacco e-Cigarette/Vaping Use: Never Used Current occupational status: retired Cognitive needs: No Hearing needs: No Vision needs: No Review of Systems Const All systems reviewed & are unremarkable except as noted in HPI and below Reports no additional complaints Eyes Reports no additional complaints ENT Reports no additional complaints Card Reports no additional complaints Resp Reports no additional complaints GI Reports no additional complaints Physical exam (Primary Care) Vital Signs: Last Vital Signs Pulse 76 08/25/23 10:22 BP 136/78 08/25/23 10:22 Pulse Ox 97 08/25/23 10:22 Oxygen Delivery Method Room Air 08/25/23 10:22 BMI result Body Mass Index 24.3 Tobacco/Smoking Status: Tobacco use Status Tobacco use date assessed 06/10/23 08/25/23 10:24 Patient Tobacco Use Status Never used Tobacco 08/25/23 10:24 e-Cigarette/Vaping Use Never Used 08/25/23 10:24 Const General: no acute distress Eyes General: appearance normal, both eyes and all related structures Neck Neck: Yes no lymphadenopathy and Yes supple Resp Auscultation: clear to auscultation bilaterally Cardio Rhythm: regular rhythm Heart sounds: S1 normal heart sound present and S2 normal heart sound present Extrem Other: Left upper extremity edema, no erythema warmth Assessment and Plan Assessment & Plan (1) DVT (deep venous thrombosis): Code(s): I82.409 - Acute embolism and thrombosis of unspecified deep veins of unspecified lower extremity Plan: For a new onset left upper extremity swelling ultrasound will be obtained to rule out DVT and patient will contact her Oncology Orders: Orders US venous duplex UE LT Today I82.409 - Acute embolism and thrombosis of unspec ified deep veins of unspecified lower extremity Coding Level of Care Code Est Pt Level 3 (97471) Diagnoses DVT (deep venous thrombosis) I82.409
== END 2023-08-25 11:19 | disposition home or self-care (01) ==
PROVIDERS: PCP Internal Medicine; Visit Provider Internal Medicine
DX: I82.409 Acute embolism and thrombosis of unspecified deep veins of unspecified lower extremity (principal)
CPT/HCPCS: 99213

== ENCOUNTER 2023-08-25 11:35 | Outpatient (REF) | payer MEDICARE, SELFPAY ==
--- NOTE | ~2023-08-25 | US_ITS ---
EXAMINATION: US VENOUS WITH DOPPLER UPPER EXTREMITY, LEFT CLINICAL INFORMATION: Left upper extremity swelling COMPARISON: None available. TECHNIQUE: Ultrasound of the upper extremity is performed using compression sonography and color and pulse Doppler flow with assessment of augmentation of flow. There is also imaging and Doppler assessment of the jugular and subclavian veins. Spectral analysis with color-flow imaging is performed. FINDINGS: Respiratory variation, normal compression, and augmented flow are noted throughout the upper extremity including the axillary, brachial, cubital, and radial and ulnar veins. There is normal flow in the internal jugular and subclavian veins. There is no visible deep or superficial thrombophlebitis. Contralateral subclavian vein is patent. US/US venous duplex UE LT IMPRESSION: No DVT demonstrated in the left upper extremity.
== END 2023-08-25 11:36 | disposition home or self-care (01) ==
LOC: HO.HMGCX 11:35
PROVIDERS: PCP Internal Medicine; Visit Provider Internal Medicine
DX: I82.492 Acute embolism and thrombosis of other specified deep vein of left lower extremity (principal)
CPT/HCPCS: 93971

== ENCOUNTER 2023-10-26 09:31 | Outpatient (AMB) | payer MEDICARE, SELFPAY ==
[2023-10-26 09:34] VITALS: BP 160/83; PULSE 68; BMI 24.1
--- NOTE | 2023-10-26 09:34 | MHC.OFFVIS ---
Intake Vital Signs 10/26/23 09:34 Height 5 ft 2 in Weight 132 lb BMI 24.1 BP 160/83 H Blood Pressure Location Rt brachial Position Sitting Pulse 68 Pulse Source Monitor Intake Visit Reasons: 6 month follow up Intake Note: Patient states shes feeling fine no GI concerns at this moment. Rn Telephonic Required: No Accompanied by: Self / Same As Patient Allergies Sulfa (Sulfonamide Antibiotics) Allergy (Mild, Verified 10/26/23 09:38) Rash naproxen Adverse Reaction (Mild, Verified 10/26/23 09:38) stomach ache. HPI HPI Comments History of Present Illness Details 72 y.o F with PMH of breast ca on anastrazole, reported liver and pancreas cyst, personal hx of polyps who is here for follow up. 01/25/23: Currently no gastrointestinal sx to include abd pain, N,V,D. Here for primarily two things: Liver and pancreas cyst - reported hx. Will obtain records from [facility]. Reportedly due for surveillance scan. CRC screening - due in 2023. Will get records. MRI 04/06/23: PANCREAS: A 2.7 cm septated, T2 bright, cystic-appearing lesion in the pancreatic body has increased in size from 2 cm on 09/24/2021. This lesion is in very close proximity with the main duct with apparent communication on axial image 15, series 4. The main duct is within the upper limits of normal measuring 0.4 cm, which has increased from 0.2 cm on 09/24/2021. A few additional sub-6 mm T2 bright cystic- appearing lesions, for instance measuring 0.5 cm in the pancreatic tail, are not convincingly changed. On postcontrast images, no clear associated enhancement is noted within these observations, although evaluation is limited due to motion.? 04/27/23: MRI results reviewed. Increase in cystic pancreatic lesion size to 2.7 cm from 2 cm in Sep 2021 now with PD dilation too. Reports a remote hx of having a biopsy 10 years ago through IR at [facility] and pt thinks that may have been the ???pancreas cyst biopsy however from previous records from [facility], liver bx ([facility]) history is reported (and seems more likely). 10/26/23: s/p EUS guided FNA of panc cyst - consistent with serous cystadenoma. No surveillance indicated. Currently no gastrointestinal sx. Reports left arm swelling and being seen in lymphedema clinic through her breast oncologist. [facility] Medical History Pain in thumb joint with movement of left hand Hematuria Recurrent cancer of left breast Vitamin D deficiency Hyperlipidemia Surgical History S/P lumpectomy, left breast H/O colonoscopy Family History Father No problems noted. Mother No problems noted. Social History Housing: Condominium Alcohol intake: current Alcohol intake frequency: a few times a month Patient Tobacco Use Status: Never used Tobacco e-Cigarette/Vaping Use: Never Used Current occupational status: retired Cognitive needs: No Hearing needs: No Vision needs: No Review of Systems Const All systems reviewed & are unremarkable except as noted in HPI and below Physical Exam Vital Signs: Last Vital Signs Pulse 68 10/26/23 09:34 BP 160/83 H 10/26/23 09:34 BMI result Body Mass Index 24.1 Const General: cooperative, healthy appearing and comfortable Resp Effort & Inspection: normal respiratory effort GI Inspection: Yes normal to inspection Psych Appearance: grossly normal and well kempt Assessment & Plan Assessment & Plan (1) Pancreas cyst: Code(s): K86.2 - Cyst of pancreas Plan: s/p EUS with FNA (Dr Hammond) and most consistent with serous cystadenoma. No surveillance imaging needed unless pt develops symptoms. (2) Colon cancer screening: Code(s): Z12.11 - Encounter for screening for malignant neoplasm of colon Plan: Hx of 4 mm T.A in 2019. Repeat colo booked for December Plan Follow up after colo. Medications: New peg 3350-electrolytes 236-22.74-6.74 -5.86 gram (Golytely) as per split prep instructions, until fecal effluent is clear 240 mL PO Q10M 4,000 mL 0RF colonoscopy Coding Level of Care Code Est Pt Level 3 (90948) Diagnoses Pancreas cyst K86.2 Colon cancer screening Z12.11
== END 2023-10-26 10:24 | disposition home or self-care (01) ==
PROVIDERS: PCP Internal Medicine; Visit Provider Internal Medicine
DX: K86.2 Cyst of pancreas (principal); Z12.11 Encounter for screening for malignant neoplasm of colon
CPT/HCPCS: 99213

== ENCOUNTER → 2023-10-26 09:31 | Outpatient (BNVA) | payer MEDICARE, SELFPAY | PROVIDERS: PCP Internal Medicine; Visit Provider Internal Medicine | DX: Z12.11 Encounter for screening for malignant neoplasm of colon (principal); K86.2 Cyst of pancreas | CPT/HCPCS: 99212 ==

== ENCOUNTER 2023-12-15 07:25 | Day surgery (SDC) | payer MEDICARE, SELFPAY ==
[2023-12-12 14:43] VITALS: BMI 24.1
--- NOTE | 2023-12-15 03:24 | MHC.SHP ---
Pre-Procedural Eval Section A - 24 Hr Update-Section A only Date of Service: 12/15/23 Section B - Complete if H&P > 30 days Chief Complaint: screening Details of Present Illness: Pain in thumb joint with movement of left hand Hematuria Recurrent cancer of left breast Vitamin D deficiency Hyperlipidemia Surgical History S/P lumpectomy, left breast H/O colonoscopy Allergies: Allergies Allergy/AdvReac Type Severity Reaction Status Date / Time Sulfa (Sulfonamide Allergy Mild Rash Verified 10/26/23 09:38 Antibiotics) naproxen AdvReac Mild stomach Verified 10/26/23 09:38 ache. Review of Systems Review of Systems Comment: 10 point ROS negative Exam Surgical H&P Exam: Normal: HEENT, Normal: Heart, Normal: Lungs, Normal: Extremities, Normal: Abdomen, Normal: Skin and Normal: Neurological Plan Diagnosis/Plan: Unchanged I have reviewed the history and physical and performed a pertinent physical examination on my patient. No changes have occurred unless specified. Time Spent With Patient Time: Total time managing care of this patient today ____ minutes.
[2023-12-15 07:37] VITALS: BP 149/72; PULSE 77; RESP 20; TEMP 36.8; O2SAT 98; BMI 24.2
[2023-12-15] MEDS: Lactated Ringers 1,000 ML 100 ML IVCONT (07:55)
--- NOTE | 2023-12-15 08:00 | HO.ANESPROP2 ---
Documented by User: Jovanna Dobbins NP 12/14/23 09:23 HPI - Anesthesia Eval Consult details Narrative: 73yo F for Colonoscopy PMFSH Active Problems Active Problems: All Active Problems DVT (deep venous thrombosis) (Acute) Cataract (Acute) Annual physical exam (Acute) Cough (Acute) Colon cancer screening (Acute) Pancreas cyst (Acute) Liver cyst (Acute) S/P lumpectomy, left breast (Acute) Mass of Neck (Acute) Pain in thumb joint with movement of left hand (Acute) Hematuria (Acute) Vitamin D deficiency (Acute) Hyperlipidemia (Acute) Past Medical History Medical History (Updated 08/25/23 @ 11:05 by Marry Argueta MD) Pain in thumb joint with movement of left hand Hematuria Recurrent cancer of left breast Vitamin D deficiency Hyperlipidemia Family History Family History Father No problems noted. Mother No problems noted. Surgical History Surgical History (Updated 12/15/23 @ 07:46 by Rachel Montemayor RN) History of axillary surgery H/O rotator cuff surgery S/P lumpectomy, left breast H/O colonoscopy Social History Social History Housing: Condominium Alcohol intake: current Alcohol intake frequency: does not drink Patient Tobacco Use Status: Former Tobacco user e-Cigarette/Vaping Use: Never Used Are you DNR?: No Advance Directives: No Advance Directives Information Provided: Yes Nutrition Risks: No Nutritional Risk Current occupational status: retired Cognitive needs: No Hearing needs: No Vision needs: No Meds Allergies Allergy/AdvReac Type Severity Reaction Status Date / Time Sulfa (Sulfonamide Allergy Mild Rash Verified 10/26/23 09:38 Antibiotics) naproxen AdvReac Mild stomach Verified 10/26/23 09:38 ache. Home Medications ?Medication ?Instructions ?Recorded ?Confirmed ?Last Taken ?Type anastrozole 1 mg tablet mg PO 01/15/21 08/25/23 12/15/23 History Exam Height,Weight and Vital Signs: Height 5 ft 2 in Weight 59.874 kg Narrative Narrative: US venous duplex UE LT 08/2023 IMPRESSION: No DVT demonstrated in the left upper extremity. Assessment and Plan Assessment Anesthesia Assessment: Chart Reviewed Documented by User: Agata Garcia DO 12/15/23 08:05 [facility] Past Medical History Medical History (Updated 08/25/23 @ 11:05 by Marry Argueta MD) Pain in thumb joint with movement of left hand Hematuria Recurrent cancer of left breast Vitamin D deficiency Hyperlipidemia Family History Family History Father No problems noted. Mother No problems noted. Family history of problems with anesthesia: No Surgical History Surgical History (Updated 12/15/23 @ 07:46 by Rachel Montemayor RN) History of axillary surgery H/O rotator cuff surgery S/P lumpectomy, left breast H/O colonoscopy History of Problems with Anesthesia: No Social History [facility] Alcohol intake: current Alcohol intake frequency: does not drink Patient Tobacco Use Status: Former Tobacco user e-Cigarette/Vaping Use: Never Used Are you DNR?: No Advance Directives: No Advance Directives Information Provided: Yes Nutrition Risks: No Nutritional Risk Current occupational status: retired Cognitive needs: No Hearing needs: No Vision needs: No Meds Allergies Allergy/AdvReac Type Severity Reaction Status Date / Time Sulfa (Sulfonamide Allergy Mild Rash Verified 10/26/23 09:38 Antibiotics) naproxen AdvReac Mild stomach Verified 10/26/23 09:38 ache. Home Medications ?Medication ?Instructions ?Recorded ?Confirmed ?Last Taken ?Type anastrozole 1 mg tablet mg PO 01/15/21 08/25/23 12/15/23 History Exam Exam Date and Time: December 15, 2023 0800 Height,Weight and Vital Signs: Height 5 ft 2 in Weight 59.874 kg Vital Signs Temperature 98.3 F 12/15/23 07:37 Pulse Rate 77 12/15/23 07:37 Respiratory Rate 20 12/15/23 07:37 Blood Pressure 149/72 H 12/15/23 07:37 Pulse Oximetry 98 12/15/23 07:37 Oxygen Delivery Method Room Air 12/15/23 07:37 Temperature 98.3 F 12/15/23 07:37 Pulse Rate 77 12/15/23 07:37 Respiratory Rate 20 12/15/23 07:37 Blood Pressure 149/72 H 12/15/23 07:37 Pulse Oximetry 98 12/15/23 07:37 Oxygen Delivery Method Room Air 12/15/23 07:37 Airway Mallampati Class: I TM Dist: >3cm Neck ROM: Full Loose/Missing/Broken Teeth: No (patient denies any loose or broken teeth) Heart: S1S2 Lungs: CTAB Assessment and Plan Assessment Anesthesia Assessment: Anesthesia Plan Discussed and Chart Reviewed Final Anesthetic Review Family History of Problems with Anesthesia: No History of Problems with Anesthesia: No NPO: Yes ASA Class: II Final Preanesthetic Review: No Changes in Pt Med Stat, Meds/Allgs Chart Reviewed, Consent Obtained/Reviewed and Anes Risks/Benef Reviewed Patient Risk: Low Procedure Risk: Low Anesthetic Plan Anesthetic Plan: MAC: and Agree w/ Assess. and Plan Disposition: Standard PACU
--- NOTE | 2023-12-15 09:30 | P.OP_ITS ---
Operative Note Operative Note Date of Service: 12/15/23 Narrative: Procedure: Colonoscopy Indication: Personal history of polyps Endoscopist: Tanna Delgado MD Anesthesia Provider: Ifrah Melgar CRNA Anesthesia type: MAC Instrument: Olympus [id number]-[id number] Consent: Indication, risks vs benefits, and alternatives were discussed with the patient who gave written informed consent to proceed. EKG, pulse, pulse oximetry and blood pressure were monitored throughout the procedure. Please see anesthesia flowsheet. Procedure: The patient was brought to the procedure room and placed in the left lateral decubitus position. IV medications were administered by the anesthesia provider in attendance. A digital rectal exam was performed which was abnormal due to finding of ext hemorrhoids. A distal attachment cap was affixed to the tip of the scope and the colonoscope was then inserted through the anus and advanced through the colon to the cecum at 80 cm,and terminal ileum. Mucosa was carefully examined under high definition white light as the instrument was slowly withdrawn in a retrograde panoramic fashion. Retroflexion was performed in rectum. The procedure was not difficult. There were no immediate obvious complications. The quality of the prep was BBPS: 2+3+2 = adequate Withdrawal time 18 minutes. Limitations: No limitations. Findings: Mucosa: Normal to cecum and terminal ileum. Protruding lesions: * 2 sessile polyp of size 2-3 mm in cecum. Cold forceps polypectomy was p erformed. The polyps were completely removed and retrieved. * 1 sessile polyp of size 3 mm in ascending colon. Cold snare polypectomy was performed. The polyp was completely removed and retrieved. * 2 sessile polyp of size 3-4 mm in descending colon. Cold snare polypectomy was performed. The polyps were completely removed and retrieved. * Medium internal hemorrhoids without stigmata of recent bleeding. Excavated lesions: * Moderate diverticulosis of left sided colon. Impression: 1. Normal colon and terminal ileum mucosa 2. Total of 5 polyps removed 3. Internal hemorrhoids 4. Diverticulosis Recommendations: - Follow path results. - Repeat colonoscopy in 3-5 years depending on path
[2023-12-15 09:32] VITALS: BP 80/40; PULSE 64; RESP 16; TEMP 36.1; O2SAT 97
[2023-12-15 09:47] VITALS: BP 109/54; PULSE 60; RESP 18; TEMP 36.1; O2SAT 98
== END 2023-12-15 10:07 | disposition home or self-care (01) ==
PROVIDERS: PCP Internal Medicine; Visit Provider Internal Medicine
PROC: 0DJD8ZZ Inspection of Lower Intestinal Tract, Via Natural or Artificial Opening Endoscopic (ICD-10-PCS; CPT 45378; principal; 2023-12-15 08:40)
DX: Z12.11 Encounter for screening for malignant neoplasm of colon (principal); Z86.010 Personal history of colon polyps; D12.0 Benign neoplasm of cecum; D12.4 Benign neoplasm of descending colon; K63.5 Polyp of colon; K57.30 Diverticulosis of large intestine without perforation or abscess without bleeding; K64.8 Other hemorrhoids; C50.912 Malignant neoplasm of unspecified site of left female breast; Z79.811 Long term (current) use of aromatase inhibitors; E78.5 Hyperlipidemia, unspecified; E55.9 Vitamin D deficiency, unspecified; R31.9 Hematuria, unspecified; Z98.890 Other specified postprocedural states; Z88.2 Allergy status to sulfonamides; Z88.6 Allergy status to analgesic agent; Z87.891 Personal history of nicotine dependence
CPT/HCPCS: 45385; 45380; 88305; J2704

== ENCOUNTER → 2023-12-15 07:25 | Outpatient (BNV) | payer MEDICARE, SELFPAY | PROVIDERS: PCP Internal Medicine; Visit Provider Internal Medicine | DX: Z12.11 Encounter for screening for malignant neoplasm of colon (principal); Z86.010 Personal history of colon polyps; D12.4 Benign neoplasm of descending colon; D12.0 Benign neoplasm of cecum; K57.30 Diverticulosis of large intestine without perforation or abscess without bleeding; K64.8 Other hemorrhoids | CPT/HCPCS: 45380; 45385 ==

== ENCOUNTER 2023-12-27 09:36 | Outpatient (AMB) | payer MEDICARE, SELFPAY ==
--- NOTE | 2023-12-27 09:36 | MHC.OFFVIS ---
Vital Signs 12/27/23 09:37 Height 5 ft 2 in Weight 132 lb 4.438 oz BMI 24.2 BP 150/68 H Blood Pressure Location Rt brachial Position Sitting Pulse 73 Intake Visit Reasons: S/P [place]; Dr. Delgado Intake Note: Rachel presents in the office as a follow up colonoscopy. CC: Just here for the results. Allergies Sulfa (Sulfonamide Antibiotics) Allergy (Mild, Verified 12/27/23 09:38) Rash naproxen Adverse Reaction (Mild, Verified 12/27/23 09:38) stomach ache. HPI Comments Details: 72 y.o F with PMH of breast ca on anastrazole, reported liver and pancreas cyst, personal hx of polyps who is here for follow up. 01/25/23: Currently no gastrointestinal sx to include abd pain, N,V,D. Here for primarily two things: Liver and pancreas cyst - reported hx. Will obtain records from [facility]. Reportedly due for surveillance scan. CRC screening - due in 2023. Will get records. MRI 04/06/23: PANCREAS: A 2.7 cm septated, T2 bright, cystic-appearing lesion in the pancreatic body has increased in size from 2 cm on 09/24/2021. This lesion is in very close proximity with the main duct with apparent communication on axial image 15, series 4. The main duct is within the upper limits of normal measuring 0.4 cm, which has increased from 0.2 cm on 09/24/2021. A few additional sub-6 mm T2 bright cystic- appearing lesions, for instance measuring 0.5 cm in the pancreatic tail, are not convincingly changed. On postcontrast images, no clear associated enhancement is noted within these observations, although evaluation is limited due to motion.? 04/27/23: MRI results reviewed. Increase in cystic pancreatic lesion size to 2.7 cm from 2 cm in Sep 2021 now with PD dilation too. Reports a remote hx of having a biopsy 10 years ago through IR at [facility] and pt thinks that may have been the ???pancreas cyst biopsy however from previous records from [facility], liver bx ([facility]) history is reported (and seems more likely). 10/26/23: s/p EUS guided FNA of panc cyst - consistent with serous cystadenoma. No surveillance indicated. Currently no gastrointestinal sx. Reports left arm swelling and being seen in lymphedema clinic through her breast oncologist. 12/15/23: Impression: 1. Normal colon and terminal ileum mucosa 2. Total of 5 polyps removed 3. Internal hemorrhoids 4. Diverticulosis Path: A. Colon, descending, polyps: Tubular adenoma (1 of 3 pieces); negative for high-grade dysplasia and carcinoma. B. Colon, cecal polyps: Tubular adenoma (1 of 3 pieces); negative for high-grade dysplasia and carcinoma. C. Colon, ascending, polyp: Polypoid colonic mucosa; no adenomatous dysplasia seen. 12/27/23: Here for colo results. Reviewed results of polyps and has 2-3 TA. Recommend repeat in 5 years if pt still in good health. [facility] Medical History Pain in thumb joint with movement of left hand Hematuria Recurrent cancer of left breast Vitamin D deficiency Hyperlipidemia Surgical History History of axillary surgery H/O rotator cuff surgery S/P lumpectomy, left breast H/O colonoscopy Family History Father No problems noted. Mother No problems noted. Social History Housing: Condominium Alcohol intake: current Alcohol intake frequency: does not drink Patient Tobacco Use Status: Former Tobacco user e-Cigarette/Vaping Use: Never Used Current occupational status: retired Cognitive needs: No Hearing needs: No Vision needs: No Review of Systems Const All systems reviewed & are unremarkable except as noted in HPI and below Physical Exam Vital Signs: Last Vital Signs Pulse 73 12/27/23 09:37 BP 150/68 H 12/27/23 09:37 BMI result Body Mass Index 24.2 Const General: comfortable and no acute distress HEENT Head: Yes normocephalic and Yes atraumatic Resp Effort & Inspection: normal respiratory effort and able to speak in complete sentences GI Inspection: Yes normal to inspection Extrem General: Yes normal to inspection and Yes full ROM Assessment & Plan Assessment & Plan (1) Pancreas cyst: Code(s): K86.2 - Cyst of pancreas Category: Medical Plan: s/p EUS with FNA (Dr Hammond) and most consistent with serous cystadenoma. No surveillance imaging needed unless pt develops symptoms. (2) Personal history of colonic polyps: Code(s): Z86.010 - Personal history of colonic polyps Category: Medical Plan 2-3 TAs on this colo. Repeat colo in 5 years if still in good health. Follow up with GI PRN
[2023-12-27 09:37] VITALS: BP 150/68; PULSE 73; BMI 24.2
== END 2023-12-27 10:27 | disposition home or self-care (01) ==
PROVIDERS: PCP Internal Medicine; Visit Provider Internal Medicine
DX: K86.2 Cyst of pancreas (principal); Z86.010 Personal history of colon polyps
CPT/HCPCS: 99214

== ENCOUNTER → 2023-12-27 09:36 | Outpatient (BNVA) | payer MEDICARE, SELFPAY | PROVIDERS: PCP Internal Medicine; Visit Provider Internal Medicine | DX: K86.2 Cyst of pancreas (principal); Z86.010 Personal history of colon polyps | CPT/HCPCS: 99212 ==

== ENCOUNTER 2024-04-12 07:17 | Outpatient (REF) | payer MEDICARE, SELFPAY ==
[2024-04-12 10:21] LABS: MANUAL DIFF FLAG NO
[2024-04-12 10:26] LABS: Basophils Absolute Auto 0.1 X10*3/uL (0.0-0.2); Eosinophils Absolute Auto 0.1 X10*3/uL (0.0-0.4); Eosinophils Percent Auto 2.7 % (0-4); Hematocrit 42.5 % (37.0-47.0); Imm Gran Abs Auto 0.03 X10*3/uL (0.00-0.03); Imm Gran Pct Auto 0.6 % (0.0-0.4); Lymphocytes Absolute Auto 1.5 X10*3/uL (1.2-4.9); Lymphocytes Percent Auto 31.7 % (20-40); Mean Corpuscular HGB Conc 35.3 g/dl (31.0-35.0); Mean Corpuscular Volume 90.6 fL (80.0-98.0); Mean Platelet Volume 10.7 fL (9.4-12.3); Monocytes Absolute Auto 0.4 X10*3/uL (0.1-1.2); Monocytes Percent Auto 7.9 % (2-11); Neutrophils Absolute Auto 2.7 x10*3/uL (2.0-8.3); Neutrophils Percent Auto 56.1 % (45-73); Platelet Count 266 X10*3/uL (160-400); Red Blood Count 4.69 X10*6/uL (4.20-5.50); Red Cell Distribution Width 12.7 % (11.0-16.0); White Blood Count 4.8 X10*3/uL (4.8-10.8)
[2024-04-12 10:55] LABS: Alanine Aminotransferase 19 U/L (0-31); Albumin Level 3.9 g/dL (3.5-5.0); Alkaline Phosphatase 59 U/L (39-117); Anion Gap 10 (12-20); Aspartate Amino Transferase 23 U/L (5-31); Bilirubin Total 0.6 mg/dL (0.0-1.0); Blood Urea Nitrogen 19 mg/dL (9-16); Calcium 9.8 mg/dL (8.4-10.2); Carbon Dioxide 28 mmol/L (22-29); Chloride 101 mmol/L (96-108); Cholesterol 188 mg/dL (<200); Estimated Glomerular Filt Rate > 60; Glucose Fasting 84 mg/dL (60-99); HDL Cholesterol 70 mg/dL (>40); LDL Cholesterol Calculated 106 mg/dL (<100); Potassium 4.1 mmol/L (3.3-5.1); Sodium 135 mmol/L (135-145); Total Protein 6.3 g/dL (6.5-8.0); Triglycerides 60 mg/dL (<150)
[2024-04-12 11:00] LABS: Vitamin D 25-OH Total 51.2 ng/mL (>30)
== END 2024-04-12 07:18 | disposition home or self-care (01) ==
LOC: HO.HMGCLDS 07:17
PROVIDERS: PCP Internal Medicine; Visit Provider Internal Medicine
DX: Z00.00 Encounter for general adult medical examination without abnormal findings (principal); E55.9 Vitamin D deficiency, unspecified; E78.5 Hyperlipidemia, unspecified
CPT/HCPCS: 36415; 80053; 80061; 82306; 85025

== ENCOUNTER 2024-04-18 08:55 | Outpatient (AMB) | payer MEDICARE, SELFPAY ==
[2024-04-18 08:57] VITALS: BP 124/78; PULSE 79; O2SAT 98; BMI 23.6
--- NOTE | 2024-04-18 08:58 | A.OFFVIS_ITS ---
Intake Vital Signs 04/18/24 08:57 Height 5 ft 2 in Weight 129 lb BMI 23.6 BP 124/78 Blood Pressure Location Rt brachial Position Sitting Pulse 79 Pulse Source Pulse Oximeter Pulse Oximetry (%) 98 Oxygen Delivery Method Room Air Intake Visit Reasons: [facility] G0439 Allergies Sulfa (Sulfonamide Antibiotics) Allergy (Mild, Verified 04/18/24 09:03) Rash naproxen Adverse Reaction (Mild, Verified 04/18/24 09:03) stomach ache. Medication List - Last Reconciled 04/18/24 by Marry Argueta MD anastrozole mg PO calcium carbonate-vitamin D3 600 mg-5 mcg (200 unit) 1,200-200 lactobacillus combination no.9 (Adult 50 Plus Probiotic) PO lorazepam 0.5 mg PO DAILY PRN magnesium glycinate PO multivitamin 1 tab PO DAILY omega-3 fatty acids (Fish Oil) PO HPI V G0439 HPI Details Initiated the conversation about Advanced Directives. Advanced Directives help? patients prepare for current and future decisions about their medical treatment? and place of care. Discussed with patient that it is a process where a patients? current condition and prognosis are reviewed, their wishes for information? regarding their illness are elicited, and likely medical dilemmas are presented? and options discussed. The form can be amended as needed, reviewed yearly and? make changes as needed IPPE/AWV ? year old presents? for her ? Annual? Wellness Visit, initial visit.? Medical / Social History Reviewed? Past Medical History ?Yes? . ? [place]? of Care / Care Team list updated ?Yes . ? Surgical/Hospitalization? History ?Yes . ? Current Medications? (including OTC and supplements) ?Yes . ? Family History ?Yes? . ? Tobacco? Control form ?Yes . ? AUDIT-C (Alcohol use) form? ?Yes . ? Illicit drug use in Social? History ?Yes . ? Current diagnosis of? depression? ?No ? Appropriate PHQ2/PHQ9? completed ?Yes . ? Data entered by ?Medical? [facility] and reviewed by provider ? Fall Risk ? Fall? History? Have you had any falls with? injury in the past year? ?No . ? Have you had two or more? falls in the past year? ?No . ? Fall Risk Assessment: ?No? falls in the past year . ? HRA filled out by? the patient, reviewed by Provider and scanned. ? IPPE/AWV ? Balance? [place]? ?Yes . ? Tandem? walk ?Yes . ? Walk and? Turn ?Yes . ? Rise from? sit to stand ?Yes . ?Vision? Corrective? lens ?Yes ? Vision? screen ? Up-to-date, has an appointment [] for vision? screening and glaucoma screening ?Hearing? Whisper? test ?pass .? Initiated the conversation about Advanced Directives. Advanced Directives help? patients prepare for current and future decisions about their medical treatment? and place of care. Discussed with patient that it is a process where a patients? current condition and prognosis are reviewed, their wishes for information? regarding their illness are elicited, and likely medical dilemmas are presented? and options discussed. The form can be amended as needed, reviewed yearly and? make changes as needed Written? Plan?Completed. See Patient? Documents. [facility] Medical History (Updated 04/18/24 @ 10:16 by Marry Argueta MD) Pain in thumb joint with movement of left hand Hematuria Recurrent cancer of left breast Vitamin D deficiency Surgical History History of axillary surgery H/O rotator cuff surgery S/P lumpectomy, left breast H/O colonoscopy Family History Father No problems noted. Mother No problems noted. Social History Housing: Condominium Alcohol intake: current Alcohol intake frequency: does not drink Patient Tobacco Use Status: Former Tobacco user e-Cigarette/Vaping Use: Never Used Current occupational status: retired Cognitive needs: No Hearing needs: No Vision needs: No Questionnaire Medicare Wellness Checkup [age] What gender do you identify with?: female During the past 4 weeks, how much have you been bothered by emotional problems such as feeling anxious, depressed, irritable, sad or downhearted, and blue?: not at all During the past 4 weeks, has your physical & emotional health limited your social activities with family, friends, neighbors, or groups?: not at all During the past 4 weeks, how much bodily pain have you generally had?: no pain During the past 4 weeks, was someone available to help you if you needed & wanted help?: yes, as much as I wanted During the past 4 weeks, what was the hardest physical activity you could do for at least 2 minutes?: very heavy Can you get to places out of walking distance without help? (For eg., can you travel alone on buses, taxis or drive your car?): Yes Can you go shopping for groceries or clothes without someone's help?: Yes Can you prepare your own meals?: Yes Can you do your housework without help?: Yes Because of any health problems, do you need the help of another person with your personal care needs such as eating, bathing, dressing or getting around the house?: No Can you handle your own money without help?: Yes During the past 4 weeks, how would you rate your health in general?: very good During the past 4 weeks how have things been going for you?: pretty well Are you having difficulties driving your car?: no Do you always fasten your seat belt when you are in a car?: yes, usually During past 4 weeks, have you been bothered by the following: never: Falling or dizzy when standing up, Sexual problems?, Trouble eating well?, Teeth or denture problems?, Problems using the telephone? and Tiredness or fatigue? Have you fallen 2 or more times in the past year?: No Are you afraid of falling?: No Are you a smoker?: no During the past 4 weeks, how many drinks of wine, beer, or other alcoholic beverages did you have?: 1 drink or less per week Do you exercise for about 20 minutes 3 or more times a week?: yes, most of the time Have you been given information to help with the following?: no: Hazards in your house that might hurt you? and no: Keeping track of your medications? How often do you have trouble taking medicines the way you have been told to take them?: I always take medicine as prescribed How confident are you that you can control & manage most of your health problems?: very confident What is your race?: White Mini Mental State Exam (MMSE) Orientation What is the (year) (season) (date) (day) (month)?: year, season, date, day and month Where are we (state) (county) (town or city) (hospital) (floor)?: state, county, town or city, hospital/clinic and floor Registration Name of 3 unrelated objects clearly and slowly, then ask patient to repeat all 3 of them. (1st repeat determines score. Make sure they can repeat all three): object 1, object 2 and object 3 Attention & Calculation (CHOOSE ONE) Spell WORLD backwards (DLROW): 5 letters Recall Ask patient to repeat the 3 items from question #3.: object 1, object 2 and object 3 Language Show patient a wristwatch & ask what it is. Repeat for pencil.: watch and pencil Ask the patient to repeat the phrase 'No ifs, ands, or buts' after you.: correct Ask the patient to 'take a piece of paper with their right hand' 'fold paper in half' 'place paper on floor': take paper in right hand, fold paper in half and place paper on floor Print the sentence 'CLOSE YOUR EYES' on a piece. If patient actually closes eyes then score.: followed written direction Give patient a blank piece of paper & ask to write a sentence. Score if it contains a noun & verb.: sentence contains subject and verb Score Score: 29 Activity of Daily Living Bathing - sponge bath, tub bath or shower: receives no assistance (gets in/out by self, if usual bathing means Dressing - getting clothes from closets & drawers, including inner/outer garments & fasteners.: gets clothes & gets completely dressed without help Toileting - going to the 'toilet room' for urine/bowel elimination & cleaning self/arranging clothes: goes to toilet room, cleans self, arranges clothes without help Transfer: moves in & out of bed and chair without help (may use support object) Continence: controls urination/bowel movements completely by self Feeding: feeds self without help Total Score: 0 Information obtained from: patient Using telephone: independent Traveling: independent Shopping: independent Preparing meals: independent Housework: independent Taking medicine: independent Managing money: independent PHQ-9 Over the last 2 weeks, how often have you been bothered by any of the following problems? 1. Little interest or pleasure in doing things: not at all 2. Feeling down, depressed, or hopeless: not at all 3. Trouble falling or staying asleep, or sleeping too much: not at all 4. Feeling tired or having little energy: not at all 5. Poor appetite or overeating: not at all 6. Feeling bad about yourself - or that you are a failure or have let yourself or your family down: not at all 7. Trouble concentrating on things, such as reading the newspaper or watching television: not at all 8. Moving or speaking so slowly that other people could have noticed. Or the opposite - being so fidgety or restless that you have been moving around a lot more than usual: not at all 9. Thoughts that you would be better off or of hurting yourself in some way: not at all Total score: 0 Depression Screening Interpretation: Negative Depression Screening Done: Yes 64144 - PHQ-9 Billing: Yes Source: Developed by Drs. Devan Sanches, Agnes Goetz, Cristhian Lezama and colleagues, with an educational janet from [employer]. Review of Systems Const All systems reviewed & are unremarkable except as noted in HPI and below Eyes Reports no additional complaints ENT Reports no additional complaints Card Reports no additional complaints Resp Reports no additional complaints GI Reports no additional complaints Reports no additional complaints Physical Exam Vital Signs: Last Vital Signs Pulse 79 04/18/24 08:57 BP 124/78 04/18/24 08:57 Pulse Ox 98 04/18/24 08:57 Oxygen Delivery Method Room Air 04/18/24 08:57 BMI result Body Mass Index 23.6 Const General: no acute distress HEENT Head: Yes normal to inspection Eyes General: appearance normal, both eyes and all related structures Neck Neck: Yes no lymphadenopathy and Yes supple Resp Effort & Inspection: normal respiratory effort Auscultation: clear to auscultation bilaterally Cardio Rhythm: regular rhythm Heart sounds: S1 normal heart sound present and S2 normal heart sound present GI Inspection: Yes normal to inspection Palpation (GI): Soft to palpation Percussion: Yes normal to percussion Auscultation: normal bowel sounds Extrem General: Yes no clubbing, cyanosis or edema Assessment & Plan Assessment & Plan (1) Lymphedema: Comment: LLE after breast ca surgery Code(s): I89.0 - Lymphedema, not elsewhere classified Plan: Follow-up with breast cancer center (2) Osteoporosis: Comment: f/u with [facility] s/p Zometa inj DEXA 2023 improved Code(s): M81.0 - Age-related osteoporosis without current pathological fracture Plan: Continue vitamin D3 and regular exercise (3) Pancreas cyst: Comment: 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, serous cystadenoma, no reimaging needed Code(s): K86.2 - Cyst of pancreas Plan: Follow-up with GI (4) Colon cancer screening: Comment: 2022, polyps recheck 5 yrs f/u GI Code(s): Z12.11 - Encounter for screening for malignant neoplasm of colon Plan: Follow-up with GI (5) Breast cancer: Comment: L breast , s/p lumpectomy 2012, [facility], took Anastazole Code(s): C50.919 - Malignant neoplasm of unspecified site of unspecified female breast Plan: Follow-up with oncology (6) Annual physical exam: Code(s): Z00.00 - Encounter for general adult medical examination without abnormal findings Plan: well-balanced diet regular exercise discussed with the patient Orders: Orders Complete Blood Count Auto Diff 1 Year C50.919 - Malignant neoplasm of unspecified site of unspecified female breast, E55.9 - Vitamin D deficiency, unspecified, K86.2 - Cyst of pancreas, M81.0 - Age-related osteoporosis without current pathological fracture, Z12.11 - Encounter for screening for malignant neoplasm of colon Lipid Panel 1 Year C50.919 - Malignant neoplasm of unspecified site of unspecif ied female breast, E55.9 - Vitamin D deficiency, unspecified, K86.2 - Cyst of pancreas, M81.0 - Age-related osteoporosis without current pathological fracture, Z12.11 - Encounter for screening for malignant neoplasm of colon TSH reflex Free T4 1 Year C50.919 - Malignant neoplasm of unspecified site of unspecified female breast, E55.9 - Vitamin D deficiency, unspecified, K86.2 - Cyst of pancreas, M81.0 - Age-related osteoporosis without current pathological fracture, Z12.11 - Encounter for screening for malignant neoplasm of colon Comprehensive [place]. Panel Fast 1 Year C50.919 - Malignant neoplasm of unspecified site of unspecified female breast, E55.9 - Vitamin D deficiency, unspecified, K86.2 - Cyst of pancreas, M81.0 - Age-related osteoporosis without current pathological fracture, Z12.11 - Encounter for screening for malignant neoplasm of colon Vitamin D 25-OH Total 1 Year C50.919 - Malignant neoplasm of unspecified site of unspecified female breast, E55.9 - Vitamin D deficiency, unspecified, K86.2 - Cyst of pancreas, M81.0 - Age-related osteoporosis without current pathological fracture, Z12.11 - Encounter for screening for malignant neoplasm of colon Medications: New lorazepam 0.5 mg PO DAILY PRN 4 tabs 0RF anxiety Quality Reporting (2019) Depression/Bipolar (159/160/161/177) PHQ-9: Total score: 0 Coding Level of Care Code Medicare Subsequent (G0439) Diagnoses Lymphedema I89.0 Osteoporosis M81.0 Pancreas cyst K86.2 Colon cancer screening Z12.11 Breast cancer C50.919 Annual physical exam Z00.00 CPT Codes Advance Care Planning - Advance Care Planning discussion: On file, no changes ([id number]) Advance Care Planning - Time spent: 1-15 minutes, on File ([id number]) Advance Care Planning Advance Care Planning discussion: On file, no changes Forms completed: Health Care Proxy Time spent: 1-15 minutes, on File
== END 2024-04-18 09:43 | disposition home or self-care (01) ==
PROVIDERS: PCP Internal Medicine; Visit Provider Internal Medicine
DX: Z00.00 Encounter for general adult medical examination without abnormal findings (principal); C50.919 Malignant neoplasm of unspecified site of unspecified female breast; I89.0 Lymphedema, not elsewhere classified; M81.0 Age-related osteoporosis without current pathological fracture; K86.2 Cyst of pancreas; Z12.11 Encounter for screening for malignant neoplasm of colon
CPT/HCPCS: 1123F; G0439

== ENCOUNTER → 2024-10-10 13:37 | Outpatient (BNVA) | payer MEDICARE, SELFPAY | PROVIDERS: PCP Internal Medicine; Visit Provider Internal Medicine | DX: J45.909 Unspecified asthma, uncomplicated (principal) | CPT/HCPCS: 96127; 99212 ==

== ENCOUNTER 2024-11-16 09:51 | Outpatient (REF) | payer MEDICARE, SELFPAY ==
--- NOTE | 2024-11-16 09:52 | PFT_ITS ---
Flows: FEV1: 109 % of predicted at 2.09 L FVC: 109 % of predicted at 2.72 L FEV1/FVC: 77 % Bronchodilator response: Absent Volumes: Total lung capacity: 96 % of predicted at 4.37 L Residual volume: 86 % of predicted at 1.67 L Slow vital capacity: 104 % of predicted at 2.70 L Expiratory reserve volume: 45 % of predicted at 0.27 L Diffusion capacity: Normal Impression: No obstructive or restrictive ventilatory defect. No bronchodilator response. Normal pulmonary function test. MTDD
[2024-11-16 10:49] VITALS: PULSE 65
--- OUTSIDE RECORDS SUMMARY | 2024-11-16 11:02 | XMS_ITS | Data Portability ---
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 I recommended she use nasal saline followed by fluticasone nasal spray every single day which should help with the use of the Eustachi device. Once again I instructed her on the proper use of the Eustachi device. Overall she is doing well despite the fluctuating middle ear effusions and is not interested in considering use of tympanostomy tubes. Follow-up in 1 year. We will get audiometric testing at that time. [email or web address] Not available 05/28/2024 10:00:21 09/06/2024 09/06/2024 74 year old female with eustachian tube dysfunction. She has bilateral mucoid effusions on exam. Type B tympanometry bilaterally. I have encouraged her to use Flonase daily to try to clear these effusions. If her effusions persist we discussed that she may benefit from myringotomy and placement of tubes. I have recommended that she follow up with Dr. Britt in a few months for reevaluation. [email or web address] Not available 09/06/2024 17:47:13 10/29/2024 10/29/2024 Patient continues to demonstrate chronic eustachian tube dysfunction with retraction on the right and middle ear effusion on the left.. I recommended she use nasal saline followed by fluticasone nasal spray every single day which should help with either Valsalva or the use of the Eustachi device. Once again I instructed her on the proper use of the Eustachi device. Once again she has no interest in replacement of tympanostomy tubes. She has already had balloon dilation of eustachian tube which does not benefit from being repeated. 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 We discussed how untreated hearing loss puts her at high risk for dementia, accidents, and falling. I recommended she undergo a hearing aid evaluation, but she was reluctant to consider this for unclear reasons. She would like to come back and see Odin Brizuela PA-C for ear cleaning in about 6 months and get updated audiometric testing at that time. If indicated, she will then be referred for hearing aid evaluation. [email or web address] Not available 10/29/2024 15:06:57 Plan of Treatment Reminders Order Date Submit Date Provider Last Modified By Organization Details Last Modified Time Details Appointments Establish ed 15 2024 10:30A M ODIN JUNG PA-C Not available Not available Not available Hearing Test 2024 11:00A M Hearing Test Not available Not available Not available Lab None recorded. Referral None recorded. Procedures None recorded. Surgeries None recorded. Imaging None recorded. Medication Orders None recorded. Patient TargetsNo targets recorded. Patient Instructions Encounter Date Encounter Id Patient Instructions Last Modified By Organization Details Last Modified Time 04/30/2024 [id number] Nursing Documentation for Allergy Testing: Ordering Provider {{Dr. Jett Britt* Dr. Trinity Molina}} Weight:lbs:??kg: ?? PFT {{Yes* no}} With Bronchodilator {{Yes* no}} Dr. brower needed to proceed with allergy testing? {{Yes No*}} {{Dr. Jett Molina}} ok'd testing {{Yes No Pulmonary Clearance PCP Clearance RAST}}Hi story of Asthma:{{Yes No*}} Asthma Meds: ??Last used:?? Asthma exacerbated by: ?? Chance that : {{Yes No Not Sure N/A*}} Fear of needles: {{Yes No*}} Regular medications reviewed in Computer: {{Yes* No}} Medication allergies: {{Reviewed* NKDA}} Antihistamine use: {{Yes No*}} Medications used: ?? Food Allergies: ?? none Any foods make your mouth feeling itchy: {{Yes No*}} If yes: ?? History of severe reaction where had to go to ER? {{Yes No*}} If yes details: ?? Type of heat in home: {{Baseboard Forced Air* Radiator othe r}} Pets: {{Yes* No}} If yes: ??1 cat Smoker: {{Yes Current Never* For fifi}} If former smoker-how much ?? / day for how long ?? When quit ?? years ago Smoking now-how much ?? /day for how long ?? Occupation/Social History: ??working out everyday Symptoms having: {{Congestion Post Nasal Drip Headache Runn y Nose* Cough Other} } If other: ??cough ,ear blockage, runny nose Frequency {{Seasonally Year Round*}} Spirometry Contraindications: Heart attack in the last 3 months: {{Yes No*}} Major surgery in last 3 months: {{Yes No*}} Detached retina(serious eye issues) in last 2 months: {{Yes No*}} Hospitilization in last month: {{Yes No*}} Proceed with PFT {{Yes* No}} approval needed: {{Yes No*}} Nursing Notes: Pt tolerated test well {{Yes* No}} Benadryl cream to test sites {{Yes* No}} Patient became syncopal-placed in supine position {{Yes No*}} Large reactions to MQT, reschedule IDT for a different date {{Yes No*}} Other: ?? Written by: {{Dalila Samaniego, AKIL Swift, AURY Brian*}} [email or web address] Not available 04/30/2024 09:34:48 Reason for Referral None Reported. Results Created Date Observation Date Name Description Value Unit Range Abnormal Flag Note LastModifiedBy Organization Detail LastModifiedTime 04/24/20 24 11/17/2022 [place] [facility]/roxann belcher tic resul t No observ ation record ed. [email or web address] Not Available 16:14:10 04/24/20 24 11/28/2023 imagi ng/di agnos tic resul t No observ ation record ed. [email or web address] Not Available 16:14:11 04/24/20 24 12/24/2020 imagi ng/di agnos tic resul t No observ ation record ed. [email or web address] Not Available 16:14:13 04/24/20 24 04/22/2020 imagi ng/di agnos tic resul t No observ ation record ed. [email or web address] Not Available 16:14:15 04/24/2006/09/2020 imagi ng/di agnos tic resul t No observ ation record ed. [email or web address] Not Available 16:14:19 04/24/20 24 07/06/2023 imagi ng/di agnos tic resul t No observ ation record ed. [email or web address] Not Available 16:14:21 04/24/20 24 07/19/2019 imagi ng/di agnos tic resul t No observ ation record ed. [email or web address] Not Available 16:14:22 04/24/20 24 11/28/2023 audio gram No observ ation record ed. [email or web address] Not Available 16:14:32 04/24/20 24 07/06/2023 audio gram No observ ation record ed. [email or web address] Not Available 16:14:37 04/24/20 24 12/24/2020 audio gram No observ ation record ed. [email or web address] Not Available 16:14:55 04/24/20 24 03/15/2022 audio gram No observ ation record ed. [email or web address] Not Available 16:15:04 04/24/20 24 04/22/2020 audio gram No observ ation record ed. [email or web address] Not Available 16:15:08 04/24/20 24 06/09/2020 audio gram No observ ation record ed. [email or web address] Not Available 16:15:17 04/24/20 24 07/19/2019 audio gram No observ ation record ed. [email or web address] Not Available 16:15:21 09/18/19 25 audio gram No observ ation record ed. [email or web address] Not Available 2024 08:58:57 Result Notes None recorded. Problems Name Problem SNOMED Code Status Onset Date Resolution Date Notes Provider Name and Address Organization Details Recorded Time Sensorin eural hearing loss in right ear 71823557499 100 Active 2016 Sensorin eural hearing loss, unilater al, right ear, with restrict ed hearing on the contrala teral side; Note: Date Diagnose d: 7 11:28 AM (H90.A21 ) Not Available [facility] 4 02:48:41 Sensorin eural hearing loss of bilatera l ears 016872289 Active 2017 Sensorin eural hearing loss, bilatera l; Note: Date Diagnose d: 04/07/2018 11:52 AM (H90.3) Not Available [facility] 4 02:48:37 Mixed conducti ve and sensorin eural hearing loss of right ear 46949803047 105 Active 2022 Mixed conducti ve and sensorin eural hearing loss, unilater al, right ear with restrict ed hearing on the contrala teral side; Note: Date Diagnose d: 3 1:42 PM (H90.A31 ) Not Available [facility] 4 02:48:40 Chronic serous otitis media of left ear 605426214 Active 2018 Chronic serous otitis media, left ear; Note: Date Diagnose d: 9 12:51 PM (H65.22) Not Available [facility] 4 02:48:38 Allergic rhinitis 42977011 Active 2019 Perennia l allergic rhinitis ; Note: Date Diagnose d: 0 9:32 AM (J30.89) Allerg ic rhinitis , unspecif ied; Note: Date Diagnose d: 8 12:05 PM (J30.9) ; Start Date : 02/23/20 18 Not Available [facility] 4 02:48:37 Abnormal auditory percepti on 41726092 Active 2017 Other abnormal auditory percepti ons, right ear; Note: Date Diagnose d: 8 12:02 PM (H93.291 ) Other abnormal auditory percepti ons, left ear; Note: Date Diagnose d: 7 11:55 AM (H93.292 ) ; Start Date : 03/17/20 17 Not Available [facility] 4 02:48:41 Disorder of right Eustachi an tube 71338061450 90881 Active 2017 Other specifie d disorder s of Eustachi an tube, right ear; Note: Date Diagnose d: 04/07/2018 11:52 AM (H69.81) Not Available [facility] 4 02:48:42 Bilatera l disorder of Eustachi an tubes 75300927109 80130 Active 2022 Other specifie d disorder s of Eustachi an tube, bilatera l; Note: Date Diagnose d: 3 12:04 PM (H69.83) Other specifie d disorder s of Eustachi an tube, bilatera l; Note: Date Diagnose d: 9 11:56 AM (H69.83) ; Start Date : 05/17/20 19 Not Available [facility] 4 02:48:40 Impacted cerumen of bilatera l ears 31504967912 28582 Active 2019 Impacted cerumen, bilatera l; Note: Date Diagnose d: 0 8:50 AM (H61.23) Not Available [facility] 4 02:48:38 Bilatera l chronic serous otitis 031157431 Active 2019 Chronic serous otitis media, bilatera l; Note: Date Diagnose d: 0 8:50 AM (H65.23) Note: Date Diagnose d: 0 8:50 AM (H65.23) Not Available [facility] 4 01:02:19 Conducti ve hearing loss, bilatera l 681460083 Active 2019 Conducti ve hearing loss, bilatera l; Note: Date Diagnose d: 0 9:25 AM (H90.0) Not Available [facility] 4 02:48:36 Mixed conducti ve and sensorin eural hearing loss, bilatera l 559466643 Active 2022 Mixed conducti ve and sensorin eural hearing loss, bilatera l; Note: Date Diagnose d: 3 10:43 AM (H90.6) Mixed conducti ve and sensorin eural hearing loss, bilatera l; Note: Date Diagnose d: 8 10:51 AM (H90.6) ; Start Date : 02/23/20 18 Not Available [facility] 4 02:48:42 Central perforat ion of left tympanic membrane 68606165399 45032 Completed 202204/06/2024 Central perforat ion of tympanic membrane , left ear; Note: Date Diagnose d: 3 4:50 PM (H72.02) Not Available [facility] 4 02:48:41 Bilatera l tympanos clerosis 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 , bilatera l; Note: Date Diagnose d: 8 11:07 AM (H74.03) Not Available [facility] 4 02:48:39 Sensorin eural hearing loss in left ear 98232548460 109 Active 2022 Sensorin eural hearing loss, unilater al, left ear, with restrict ed hearing on the contrala teral side; Note: Date Diagnose d: 3 1:42 PM (H90.A22 ) Not Available [facility] 4 02:48:36 Disorder of left Eustachi an tube 69458100274 86750 Active 2020 Other specifie d disorder s of Eustachi an tube, left ear; Note: Date Diagnose d: 06/24/20 21 9:53 AM (H69.82) Other specifie d disorder s of Eustachi an tube, left ear; Note: Date Diagnose d: 7 11:28 AM (H69.82) ; Start Date : 03/17/20 17 Not Available [facility] 4 02:48:36 Otalgia of left ear 2756905089 Active 2022 Otalgia, left ear; Note: Date Diagnose d: 3 12:04 PM (H92.02) Not Available [facility] 4 02:48:40 Mixed conducti ve and sensorin eural hearing loss of left ear 41194765953 107 Active 2016 Mixed conducti ve and sensorin eural hearing loss, unilater al, left ear with restrict ed hearing on the contrala teral side; Note: Date Diagnose d: 7 11:28 AM (H90.A32 ) Not Available [facility] 4 02:48:39 Posterio r rhinorrh ea 89211004 Active 2019 Postnasa l drip; Note: Date Diagnose d: 0 2:52 PM (R09.82) Not Available [facility] 4 02:48:37 Seasonal allergic rhinitis 324164711 Active 2023 NICOLAS BRITT MD [address] [place] [address], [place], [address] , [place] [facility] 4 08:52:31 Non-benji rgic rhinitis 49803931050 1 Active 2023 NICOLAS BRITT MD [address] [place] [address], [place], [address] , [place] - [facility] 4 08:52:31 Chronic mucoid otitis media of right middle ear 52926004355 82993 Active 2023 NICOLAS BRITT MD [address] [place] [address], [place], [address] , [place] - [facility] 4 08:55:34 Problem Notes None recorded. Procedures Surgical History Date Name Laterality Status Provider Name and Address Organization Details Recorded Time 09/06/19 25 Tympanometry (81195) completed CAN MAYORGA, AUD [address] [facility],[place] [address], [place], [address], [facility] - [facility] 09/06/2024 14:55:55 04/30/20 24 Allergy Testing-Full completed FARIDEH BRIAN RMA [address] [facility] [address], [place], [address], [facility] - [facility] 04/30/2024 10:12:56 Myringotomy Tube Placement completed Meghna Quiros [facility] 04/16/2024 08:39:36 complete repair of rotator cuff completed Meghna Quiros [facility] 04/16/2024 08:39:43 lumpectomy of breast completed Meghna Quiros [facility] 04/16/2024 08:39:48 Imaging Results Imaging Date Name Status LastModified by [facility] Details LastModified Time 11/17/2022 imaging/diagno stic result completed Information not available 04/24/2024 16:14:10 11/28/2023 imaging/diagno stic result completed Information not available 04/24/2024 16:14:11 12/24/2020 imaging/diagno stic result completed Information not available 04/24/2024 16:14:13 04/22/2020 imaging/diagno stic result completed Information not available 04/24/2024 16:14:15 06/09/2020 imaging/diagno stic result completed Information not available 04/24/2024 16:14:19 07/06/2023 imaging/diagno stic result completed Information not available 04/24/2024 16:14:21 07/19/2019 imaging/diagno stic result completed Information not available 04/24/2024 16:14:22 11/28/2023 audiogram completed Information not available 04/24/2024 16:14:32 07/06/2023 audiogram completed Information not available 04/24/2024 16:14:37 12/24/2020 audiogram completed Information not available 04/24/2024 16:14:55 03/15/2022 audiogram completed Information not available 04/24/2024 16:15:04 04/22/2020 audiogram completed Information not available 04/24/2024 16:15:08 06/09/2020 audiogram completed Information not available 04/24/2024 16:15:17 07/19/2019 audiogram completed Information not available 04/24/2024 16:15:21 09/18/2024 audiogram completed BARCODE Information no t available 09/18/2024 08:58:57 Procedure Notes None recorded. Medical Equipment None Reported. Allergies Allergen ID Allergen Name Allergen Category Reaction Reaction Severity Criticality Documentation Date Start Date Code Code System Note Provider Name and Address Organization Details Recorded Time 85541 naproxen medicatio n other Not available Not available 01/17/2024 7258 RxNorm React ion: unkno wn, unspe cifie d;; Not Available [facility] 01:04:54 Medications Name Sig Start Date Stop Date Status Note LastModified by Organization Details LastModified Time anastrozo le 1 mg tablet active Not Available Not Available Not Available prednison e 10 mg tablet TAKE 4 TABLETS BY MOUTH DAILY FOR 3 DAYS, THEN 3 TABLETS DAILY FOR 3 DAYS, THEN 2 TABLETS DAILY FOR 3 DAYS, THEN TAKE 1 TABLET DAILY FOR 3 DAYS 10/29 completed Not Available Not Available Not Available azithromy belkis 250 mg tablet TAKE 2 TABLETS BY MOUTH ON DAY 1, AND THEN TAKE 1 TABLET BY MOUTH ONCE A DAY ON DAY 2 THROUGH DAY 5 10/29 completed Not Available Not Available Not Available ofloxacin 0.3 % eye drops 09/20 completed Medicati on ID: [id number] Eris beckham By Name: Yvonne Cedillo nd Name: oflosancho layne Send Method: E-Prescr ibed Sub s Allowed: subs OK Speci al Instruct ion: apply 5 drops to each ear BID x 3 days Med icationG enericNa me: ofloxaci n Not Available Not Available Not Available Medrol (Aurelio) 4 mg tablets in a dose pack 04/16 completed Medicati on ID: [id number] D uration Value: 6 Brand Name: Medrol (Aurelio) Se nd Method: E-Prescr ibed Sub s Allowed: subs OK Speci al Instruct ion: Take 1 pack as directed Medicat ionGener icName: Medrol (Aurelio) Not Available Not Available Not Available prednison e 20 mg tablet TAKE 2 TABLETS BY MOUTH ONCE DAILY FOR 3 DAYS 04/30 completed Not Available Not Available Not Available prednison e 5 mg tablet TAKE 4 TABLETS BY MOUTH TWICE DAILY FOR 5 DAYS, THEN 3 TWICE DAILY FOR 2 DAYS, THEN 2 TWICE DAILY FOR 2 DAYS, THEN 1 TWICE DAILY FOR 2 DAYS, THEN 1 ONCE DAILY FOR 2 DAYS 04/16 completed Not Available Not Available Not Available Ciloxan 0.3 % eye drops 04/16 completed Medicati on ID: [id number] D uration Value: 14 Brand Name: Ciloxan Send Method: E-Prescr ibed Sub s Allowed: subs OK Speci al Instruct ion: Instill 4 drops twice a day into affected ear for 14 days Med icationG enericNa me: Ciloxan Not Available Not Available Not Available ketorolac 0.5 % eye drops INSTILL 1 DROP INTO LEFT EYE 4 TIMES DAILY FOR 6 WEEKS POSTOPER ATIVELY 04/16 completed Not Available Not Available Not Available ofloxacin 0.3 % ear drops Apply 4 drop into both ears twice a day 04/16 completed Medicati on ID: [id number] D uration Value: 14 Brand Name: ofloxaci n Send Method: E-Prescr ibed Sub s Allowed: subs OK Speci al Instruct ion: x 14 days Med icationG enericNa me: ofloxaci n Not Available Not Available Not Available lorazepam 0.5 mg tablet TAKE 1 TABLET BY MOUTH ONCE DAILY NEEDED FOR ANXIETY active Not Available Not Available No t Available fluticaso ne propionat e 50 mcg/actua tion nasal spray,[place] pension USE 2 SPRAY(S) IN EACH NOSTRIL ONCE DAILY 04/30 completed Not Available Not Available Not Available ipratropi um bromide 21 mcg (0.03 %) nasal spray 2 spray into both nostrils 04/30 completed Medicati on ID: [id number] D uration Value: 30 Prescri bed By Name: SANJAY Garrison nd Name: ipratrop ium bromide Send Method: E-Prescr ibed Sub s Allowed: subs OK Medic ationGen ericName : ipratrop ium bromide Not Available Not Available Not Available Ventolin HFA 90 mcg/actua tion aerosol inhaler 06/24 completed Medicati on ID: [id number] D uration Value: 50 Brand Name: Ventolin HFA Send Method: E-Prescr ibed Sub s Allowed: subs OK Medic ationGen ericName : Ventolin HFA Not Available Not Available Not Available neomycin- polymyxin -hydrocor t 3.5 mg-10,000 unit/mL-1 % ear drops,[place] p Instill 4 drop twice a day 04/16 completed Medicati on ID: [id number] D uration Value: 14 Brand Name: neomycin -polymyx in-HC Se nd Method: E-Prescr ibed Sub s Allowed: subs OK Medic ationGen ericName : neomycin -polymyx in-HC Not Available Not Available Not Available TobraDex 0.3 %-0.1 % eye drops,[place] pension 11/23 completed Medicati on ID: [id number] D uration Value: 14 Prescri bed By Name: SANJAY Garrison nd Name: TobraDex Send Method: E-Prescr ibed Sub s Allowed: subs OK Speci al Instruct ion: 4 drops into left ear BID X 14 days Med icationG enericNa me: TobraDex Not Available Not Available Not Available calcium 315 mg (as citrate)- vitamin D3 5 mcg (200 unit) tablet 2 tablets every day by oral route. active Not Available Not Available No t Available peg 3350-elec trolytes 236 gram-22.7 4 gram-6.74 gram-5.86 gram solution 04/16 completed Not Available Not Available Not Available Women's Multivita min 18 mg-400 mcg-500 mg-50 mcg tablet 1 tablet every day by oral route. 1999 active Not Available Not Available Not Avai lable Daily Probiotic (4 Strains) 11 billion cell-15 mg capsule 2019 active Not Available Not Available Not Avai lable Vitals Date Recorded Heart rate Oxygen saturation Oxygen saturation in Arterial blood by Pulse oximetry Body weight Body mass index (BMI) Body height Systolic blood pressure Diastolic blood pressure Provider Name and Address Organization Details Last Updated DateTime 4 76 /min 100 % 100 % 34563.4 2 g 23.6 kg/m2 157.48 cm 145 mm[Hg] 75 mm[Hg] FARIDEH BRIAN, [facility] [address], [address], [place] - [facility] 4 09:06:33 Date Recorded Body height Body weight Provider Name and Address Organization Details Last Updated DateTime 05/28/2024 157.48 cm 06119.42 g Meghna Quiros [place] - [facility] 05/28/2024 09:27:23 Date Recorded Body height Body mass index (BMI) Body weight Provider Name and Address Organization Details Last Updated DateTime 09/06/2024 157.48 cm 23.4 kg/m2 81500.82 g Genoveva Ho [place] [facility] 09/06/2024 14:28:29 Date Recorded Body height Body weight Provider Name and Address Organization Details Last Updated DateTime 10/29/2024 157.48 cm 48990.82 g Meghna Quiros [facility] 10/29/2024 14:31:56 Social History None recorded. Functional Status None recorded. Mental Status None recorded. Family History Nothing Reported. Medical History Condition Response Allergies/Hayfever N Heart Problems N Anxiety N Tonsil Infections N Emphysema N Migraines N Thyroid Problems N Glaucoma N Depression N COPD N Developmental Delay N Nasal or Sinus Problems Y Anemia N Immune System Disorder N Anesthesia Complications N Heart Attack (ID) N Other Skin Condition N Diabetes N Rhinitis N Bleeding Disorder N Food Allergy N Arthritis Y Hearing Loss Y Hyperlipidemia N Cancer Y Stroke N Dementia N Nasal polyps N Asthma N High Cholesterol N Sleep Disorder N GERD/Reflux N Liver Disease N Headaches N Fibromyalgia N Hypertension N Speech Delay N Kidney Disease N Gynecological HistoryNo gynecological history recorded. Obstetrics History GPAL:G 0 P 0 0 0 0 Past Encounters Encounter ID Performer Location Encounter Start Date Encounter Closed Date Diagnosis/Indication Diagnosis SNOMED-CT Code Diagnosis ICD10 Code Diagnosis Note [id number] NICOLAS BRITT MD [facility] [address] [address] 04/16/2024 08:25:25 04/16/2024 09:01:47 Bilateral disorder of Eustachian tubes 9386706800 342485 H69.83 Allergic rhinitis 280779 04 J30.89 J30.9 Chronic mu coid otitis media of right middle ear 8930294043 723971 H65.31 [id number] FARIDEH BRIAN [facility] Allergy [address] [place] [address] [place] [id number] 04/30/2024 08:46:22 04/30/2024 11:01:28 Allergic rhinitis 99067187 J30.89 J30.9 [id number] NICOLAS BRITT MD [facility] on [address] [place] [id number] 05/28/2024 09:23:03 05/28/2024 10:03:21 Bilateral disorder of Eustachian tubes 5413337634 610788 H69.83 Chronic se maddie otitis media of left ear 364574825 H65.22 Conductive hearing loss, bilateral 838727783 H90.0 [id number] BREN TORRES MD [facility] on [address] [place] [id number] 09/06/2024 13:58:29 09/06/2024 14:57:32 Bilateral chronic serous otitis 239230150 H65.23 Bilateral disorder of Eustachian tubes 9610513486 381963 H69.83 [id number] MARIOLA FLORES [facility] on [address] [place] [id number] 09/06/2024 14:54:52 09/07/2024 16:09:58 Bilateral disorder of Eustachian tubes 7992322370 595554 H69.83 Tympanomet ry: Right: Type {{A B* B with large ECV C}} Left: {{A B* B with large ECV C}} [id number] NICOLAS BRITT MD [facility] on [address] [place] [id number] 10/29/2024 14:27:52 10/29/2024 15:24:50 Bilateral disorder of Eustachian tubes 3001479678 123509 H69.83 Chronic se maddie otitis media of left ear 453237931 H65.22 Conductive hearing loss, bilateral 955623123 H90.0 Health Concerns Section Related Observation LastModified by Organization Detai ls LastModified Time None Recorded Concern Status LastModified by Organization Details LastModified Time None Recorded Advance Directives Directive None Recorded Payers Encounter Date Sequence Insurance Name Policy Number Policy Henderson Covered Member ID Henderson Member ID Guarantor Name 04/30/2024 1 [place] [employer] Rachel Montenegroque [id number] Rachel Dunninique 04/30/2024 2 [place] [id number] Rachel Dunninique [id number] Rachel Dunninique 05/28/2024 1 [place] [place] Rachel Dunninique [id number] Rachel Betancourt Leidy 05/28/2024 2 [place] [id number] Rachel Dunninique [id number] Rachel Dunninique 09/06/2024 1 [place] Rachel Dunninique [id number] 19 Rachel Dunninique 09/06/2024 2 [place] [id number] Rachel Dunninique [id number] Rachel Betancourt Leidy 09/06/2024 1 [place] [employer] Rachel Dunninique [id number] Rachel Dunninique 09/06/2024 2 [place] [id number] Rachel Dunninique [id number] Rachel Betancourt Leidy 10/29/2024 1 [place] [employer] [employer] Rachel Forbes [id number] Rachel Forbes 10/29/2024 2 [place] [id number] Rachel Forbes [id number] Rachel Forbes Notes Date Note Type Note Provider Name and Address Organization Details Recorded Time 05/28/2024 text/html Patient with a history of balloon dilation of eustachian tube in 2019. Patient has had persistent eustachian tube dysfunction with waxing and waning middle ear effusions. Patient sent for allergy testing which was completed last month. This showed moderate reaction to hickory and maple trees, but otherwise no significant allergic reactions. At a previous visit I recommended she get the Eustachi device. She was using it, but was trying to do multiple inflations in a row rather than spread it out throughout the day. She wanted to avoid replacement of tympanostomy tubes. Patient reports that she was using the Eustachi device and the left ear would inflate, but the right ear would not. At her last visit I recommended she restart Flonase but she did not do this . Using saline nasal spray packets to irrigate her nose out every morning. NICOLAS BRITT MD [address] [facility],[address], [address], [facility] - [facility] 05/28/2024 10:00:52 09/06/2024 text/html 74 year old klaus vera presents to the office reporting a few weeks of bilateral blocked ear sensation. She cannot get the Eustachi device to work. She does try to autoinsufflate several times daily. She is very hesitant to use Flonase as she does not like the idea of using a medication daily. BREN TORRES MD [address] [facility],[address], [address], [facility] - [facility] 09/08/2024 08:40:44 09/06/2024 text/html Seeing Olga VAUGHN today who ordered tympanometry due to Rachel feeling that there is fluid in her ears. She has a hx of fluid and infections. MARIOLA FLORES [address] [facility],[place] [address], [place], [address], [facility] - [facility] 09/06/2024 14:56:33 10/29/2024 text/html Patient with a history of balloon dilation of eustachian tube in 2019. Patient has had persistent eustachian tube dysfunction with waxing and waning middle ear effusions. Allergy testing showed moderate reaction to hickory and maple trees, but otherwise no significant allergic reactions. At previous visits I recommended she get the Eustachi device. She was using it, but was trying to do multiple inflations in a row rather than spread it out throughout the day. She wanted to avoid replacement of tympanostomy tubes. Patient reports that she was using the Eustachi device and the left ear would inflate, but the right ear would not. At her last visit I recommended she restart Flonase but she did not do this . Using saline nasal spray packets to irrigate her nose out every morning. She was seen by Olga Raygoza PA-C who also recommended she start Flonase she did this for 1 bottle worth, but did not get anymore. NICOLAS BRITT MD [address] [place] [address], [phone], [facility] - [facility] 10/29/2024 15:07:18 OBGyn Episode No OBEpisode recorded.
--- OUTSIDE RECORDS SUMMARY | 2024-11-16 11:02 | XMS_ITS | Continuity of Care Document ---
Author Organization [place] - [facility], [facility] Address [address] [facility] [place] [address] Care Team Providers Care Manager Steel Name Role Phone MORENA MARTINES Primary Care Provider Assessment Encounter Date Assessment Date Assessment LastModified by Organization Details LastModified Time 10/29/2024 10/29/2024 Patient continues to demonstrate chronic [...] then be referred for hearing aid evaluation. [email or web address] Not available 10/29/2024 15:06:57 Plan of Treatment [...] None recorded. Patient TargetsNo targets recorded. Patient InstructionsNo instructions recorded. Reason for Referral None Reported. Problems Name Problem SNOMED Code Status Onset Date Resolution Date Notes Provider Name and Address Organization Details Recorded Time Sensorin eural hearing loss in right ear 29267140106 100 Active 2016 Sensorin eural hearing loss, unilater al, right ear, with restrict ed hearing on the contrala teral side; Note: Date Diagnose d: 7 11:28 AM (H90.A21 ) Not Available [facility] 4 02:48:41 Sensorin eural hearing loss of bilatera l ears 838644526 Active 2017 Sensorin eural hearing loss, bilatera l; Note: Date Diagnose d: 04/07/2018 11:52 AM (H90.3) Not Available [facility] 4 02:48:37 Mixed conducti ve and sensorin eural hearing loss of right ear 89422977670 105 Active 2022 Mixed conducti ve and sensorin eural hearing loss, unilater al, right ear with restrict ed hearing on the contrala teral side; Note: Date Diagnose d: 3 1:42 PM (H90.A31 ) Not Available [facility] 4 02:48:40 Chronic serous otitis media of left ear 315619299 Active 2018 Chronic serous otitis media, left ear; Note: Date Diagnose d: 9 12:51 PM (H65.22) Not Available [facility] 4 02:48:38 Allergic rhinitis 81948248 Active 2019 Perennia l allergic rhinitis ; Note: Date Diagnose d: 0 9:32 AM (J30.89) Allerg ic rhinitis , unspecif ied; Note: Date Diagnose d: 8 12:05 PM (J30.9) ; Start Date : 02/23/20 18 Not Available [facility] 4 02:48:37 Abnormal auditory percepti on 45747153 Active 2017 Other abnormal auditory percepti ons, right ear; Note: Date Diagnose d: 8 12:02 PM (H93.291 ) Other abnormal auditory percepti ons, left ear; Note: Date Diagnose d: 7 11:55 AM (H93.292 ) ; Start Date : 03/17/20 17 Not Available [facility] 4 02:48:41 Disorder of right Eustachi an tube 08036600720 43944 Active 2017 Other specifie d disorder s of Eustachi an tube, right ear; Note: Date Diagnose d: 04/07/2018 11:52 AM (H69.81) Not Available [facility] 4 02:48:42 Bilatera l disorder of Eustachi an tubes 10556477463 90496 Active 2022 Other specifie d disorder s of Eustachi an tube, bilatera l; Note: Date Diagnose d: 3 12:04 PM (H69.83) Other specifie d disorder s of Eustachi an tube, bilatera l; Note: Date Diagnose d: 9 11:56 AM (H69.83) ; Start Date : 05/17/20 19 Not Available [facility] 4 02:48:40 Impacted cerumen of bilatera l ears 53907559326 44793 Active 2019 Impacted cerumen, bilatera l; Note: Date Diagnose d: 0 8:50 AM (H61.23) Not Available [facility] 4 02:48:38 Bilatera l chronic serous otitis 730105461 Active 2019 Chronic serous otitis media, bilatera l; Note: Date Diagnose d: 0 8:50 AM (H65.23) Note: Date Diagnose d: 0 8:50 AM (H65.23) Not Available [facility] 4 01:02:19 Conducti ve hearing loss, bilatera l 216776634 Active 2019 Conducti ve hearing loss, bilatera l; Note: Date Diagnose d: 0 9:25 AM (H90.0) Not Available [facility] 4 02:48:36 Mixed conducti ve and sensorin eural hearing loss, bilatera l 458979841 Active 2022 Mixed conducti ve and sensorin eural hearing loss, bilatera l; Note: Date Diagnose d: 3 10:43 AM (H90.6) Mixed conducti ve and sensorin eural hearing loss, bilatera l; Note: Date Diagnose d: 8 10:51 AM (H90.6) ; Start Date : 02/23/20 18 Not Available [facility] 4 02:48:42 Central perforat ion of left tympanic membrane 57398320374 36203 Completed 202204/06/2024 Central perforat ion of tympanic membrane , left ear; Note: Date Diagnose d: 3 4:50 PM (H72.02) Not Available [facility] 4 02:48:41 Bilatera l tympanos clerosis 95712724116 177594 Active 2017 Tympanos clerosis , bilatera l; Note: Date Diagnose d: 8 11:07 AM (H74.03) Not Available [facility] 4 02:48:39 Sensorin eural hearing loss in left ear 53903020220 109 Active 2022 Sensorin eural hearing loss, unilater al, left ear, with restrict ed hearing on the contrala teral side; Note: Date Diagnose d: 3 1:42 PM (H90.A22 ) Not Available [facility] 4 02:48:36 Disorder of left Eustachi an tube 86453502308 61350 Active 2020 Other specifie d disorder s of Eustachi an tube, left ear; Note: Date Diagnose d: 06/24/20 21 9:53 AM (H69.82) Other specifie d disorder s of Eustachi an tube, left ear; Note: Date Diagnose d: 7 11:28 AM (H69.82) ; Start Date : 03/17/20 17 Not Available [facility] 4 02:48:36 Otalgia of left ear 5939151999 Active 2022 Otalgia, left ear; Note: Date Diagnose d: 3 12:04 PM (H92.02) Not Available [facility] 4 02:48:40 Mixed conducti ve and sensorin eural hearing loss of left ear 24601468803 107 Active 2016 Mixed conducti ve and sensorin eural hearing loss, unilater al, left ear with restrict ed hearing on the contrala teral side; Note: Date Diagnose d: 7 11:28 AM (H90.A32 ) Not Available [facility] 4 02:48:39 Posterio r rhinorrh ea 95750862 Active 2019 Postnasa l drip; Note: Date Diagnose d: 0 2:52 PM (R09.82) Not Available [facility] 4 02:48:37 Seasonal allergic rhinitis 529069028 Active 2023 NICOLAS BRITT MD [address] [place] [address], [place], [address] , [facility] 4 08:52:31 Non-benji rgic rhinitis 49661670688 1 Active 2023 NICOLAS BRITT MD [address] [place] [address], [place], [address] , [facility] - [facility] 4 08:52:31 Chronic mucoid otitis media of right middle ear 73686923889 36869 Active 2023 NICOLAS BRITT MD [address] [place] [address], [place], [address] , [facility] - [facility] 4 08:55:34 Problem Notes None recorded. Procedures Surgical History Date Name Laterality Status Provider Name and Address Organization Details Recorded Time 09/06/19 25 Tympanometry (56889) completed MARIOLA FLORES [address] [facility],[place] [address], [place], [address], [place] - [facility] 09/06/2024 14:55:55 04/30/20 Allergy Testing-Full completed FARIDEH BRIAN, [facility] [address] [facility],[place] [address], [place], [address], [facility] 04/30/2024 10:12:56 Myringotomy Tube Placement completed Meghna Quiros [facility] 04/16/2024 08:39:36 complete repair of rotator cuff completed Meghna Quiros [facility] 04/16/2024 08:39:43 lumpectomy of breast completed Meghna Quiros [facility] 04/16/2024 08:39:48 Imaging Results None recorded. Procedure Notes None recorded. Medical Equipment None Reported. Allergies Allergen ID Allergen Name Allergen Category Reaction Reaction Severity Criticality Documentation Date Start Date Code Code System Note Provider Name and Address Organization Details Recorded Time 97496 naproxen medicatio n other Not available Not available 01/17/2024 7258 RxNorm React ion: unkno wn, unspe cifie d;; Not Available [facility] 01:04:54 Medications Name Sig Start Date Stop [...] eye drops 09/20 completed Medicati on ID: [id number] Eris burt d By Name: Yvonne Cedillo nd Name: ofloxaviky layne Send Method: E-Prescr ibed Sub s Allowed: subs [place] Speci al Instruct ion: apply 5 drops to each ear BID x 3 days Med icationG enericNa me: ofloxaci n Not Available Not Available Not Available Medrol (Aurelio) 4 mg tablets in a dose pack 04/16 completed Medicati on ID: [id number] D uration Value: 6 Brand Name: Medrol (Aurelio) Se nd Method: E-Prescr ibed Sub s Allowed: subs ATA geller Instruct ion: Take 1 pack as directed [...] eye drops 04/16 completed Medicati on ID: [id number] D uration Value: 14 Brand Name: Ciloxan Send Method: E-Prescr ibed Sub s Allowed: subs ATA geller Instruct ion: Instill 4 drops twice a [...] a day 04/16 completed Medicati on ID: [id number] D uration Value: 14 Brand Name: ofloxaci n Send Method: E-Prescr ibed Sub s Allowed: subs ATA geller Instruct ion: x 14 days Med icationG [...] both nostrils 04/30 completed Medicati on ID: [id number] D uration Value: 30 Prescri bed By Name: SANJAY Garrison nd Name: ipratrop ium bromide Send Method: E-Prescr ibed Sub s Allowed: subs [place] Medic ationGen ericName : ipratrop ium bromide Not Available Not Available Not Available Ventolin HFA 90 mcg/actua tion aerosol inhaler 06/24 completed Medicati on ID: [id number] D uration Value: 50 Brand Name: Ventolin HFA Send Method: E-Prescr ibed Sub s Allowed: subs [place] Medic ationGen ericName : Ventolin HFA Not Available Not Available Not Available neomycin- polymyxin -hydrocor t 3.5 mg-10,000 unit/mL-1 % ear drops,alesia p Instill 4 drop twice a day 04/16 completed Medicati on ID: [id number] D uration Value: 14 Brand Name: neomycin -polymyx in-HC Se nd Method: E-Prescr ibed Sub s Allowed: subs [place] Medic ationGen ericName : neomycin -polymyx in-HC Not Available Not Available Not Available TobraDex 0.3 %-0.1 % eye drops,[place] pension 11/23 completed Medicati on ID: [id number] D uration Value: 14 Prescri bed By [...] Available Not Avai lable Vitals Date Recorded Body height Body weight Provider Name and Address Organization Details Last Updated DateTime 10/29/2024 157.48 cm 01853.82 g Meghna Quiros [place] [facility] 10/29/2024 14:31:56 Social History None recorded. Functional [...] Disorder N Anesthesia Complications N Heart Attack ([place]) N Other Skin Condition N Diabetes N Rhinitis N Bleeding Disorder N Food Allergy N Arthritis Y Hearing Loss Y Hyperlipidemia N Cancer Y Stroke N Dementia N Nasal polyps N Asthma N Sleep Disorder N GERD/Reflux N High Cholesterol N Liver Disease N Headaches N Fibromyalgia N Hypertension N Speech Delay N Kidney Disease N Gynecological HistoryNo gynecological history recorded. Obstetrics History GPAL:G 0 P 0 0 0 0 Past Encounters Encounter ID Performer Location Encounter Start Date Encounter Closed Date Diagnosis/Indication Diagnosis SNOMED-CT Code Diagnosis ICD10 Code Diagnosis Note [id number] NICOLAS BRITT MD [facility]ending [facility] to [facility] on [address] [place] [address] 10/29/2024 14:27:52 10/29/2024 15:24:50 Bilateral disorder of Eustachian tubes 6829789987 159924 H69.83 Chronic se maddie otitis media of left ear 822698543 H65.22 Conductive hearing loss, bilateral 331433459 H90.0 Health Concerns Section Related Observation LastModified by Organization Detai ls LastModified Time None Recorded Concern Status LastModified by Organization Details LastModified Time None Recorded Payers Encounter Date Sequence Insurance Name Policy Number Policy Henderson Covered Member ID Henderson Member ID Guarantor Name 10/29/2024 1 [place] [employer] [place] Rachel Forbes [id number] Rachel Forbes 10/29/2024 2 [place] [id number] Rachel Forbes [id number] Rachel Betancourt Leidy Notes Date Note Type Note Provider Name and Address Organization Details Recorded Time 10/29/2024 text/html Patient with a history of [...] did not get anymore. NICOLAS BRITT MD [address] [place] [address], [address], [facility] - [facility] 10/29/2024 15:07:18 OBGyn Episode No OBEpisode recorded.
--- OUTSIDE RECORDS SUMMARY | 2024-11-16 11:02 | XMS_ITS | Patient Health Record ---
Author Organization [facility] Address [address] [address] Care Team Providers Care Faculty Instructor Name Role Phone Maci Obrien Unavailable [phone] Allergies No Known Allergies Reason For Referral No Information Medications Medication SIG (Take, Route, Fr equency, Duration) Notes Start Date End Date Status Anastrozole 1 MG 1 tablet Orally Once a day Active Social History Alcohol Screen (Audit-C) Question Answer Notes Did you have a drink contain ing alcohol in the past year? Yes How often did you have a dri nk containing alcohol in the past year? 2 to 4 times a month (2 points) Points 2 Interpretation Negative Tobacco use other than smoking: Question Answer Notes Are you an other tobacco user? No Problems Problem Type SNOMED Code ICD Code Onset Dates Problem Status W/U Status Risk Notes Problem Postmenopausal atrophic vaginitis (67617620) Postmenopausal atrophic vaginitis (N95.2) Active confirmed Problem Personal history of primary malignant neoplasm of breast (763317773) Personal history of malignant neoplasm of breast (Z85.3) Active confirmed Plan Of Treatment Pending Test Test Name Order Date THIN PREP,HPV,ZEUS IF HPV+ (>29YR)(SCRN) 07/07/2016 Insurance Providers Payer Name Payer Address Payer Phone Subscriber Number Group Number Insured Name Patient Relationship to Insured Coverage Start Date Coverage End Date MEDICARE [address] JACKIE RUGGIERO [id number] [phone] [id number] EVA SO Self - patient is the insured MEDEX [address] [place] [address] [phone] [id number] EVA SO Self - patient is the insured Medical (General) History Medical History History ICD Code L breast ca 2011, stage 1, recurrence 20 20 Postmenopausal atrophic vaginitis N95.2 Surgical History Surgery Date(Month/Year) L BREAST LUMPECTOMY, with L breast ca, stage 1. s/p radiation therapy 2012 R SHOULDER SURGERY 2007 Bilateral balloon dilation of the eustac hian tubes 06/[address] resction, Ca. s/p RT 0
== END 2024-11-16 09:52 | disposition home or self-care (01) ==
LOC: HO.RESP 09:51
PROVIDERS: PCP Internal Medicine; Visit Provider Internal Medicine
DX: J45.909 Unspecified asthma, uncomplicated (principal)
CPT/HCPCS: 94010; 94640; 94727; 94729

== ENCOUNTER → 2024-11-16 09:52 | Outpatient (BNV) | payer MEDICARE, SELFPAY | PROVIDERS: PCP Internal Medicine; Visit Provider Internal Medicine Pulmonary Disease | DX: J45.909 Unspecified asthma, uncomplicated (principal) | CPT/HCPCS: 94060; 94727; 94729 ==

== ENCOUNTER 2025-06-05 07:39 | Outpatient (REF) | payer MEDICARE, SELFPAY ==
--- OUTSIDE RECORDS SUMMARY | 2016-11-10 01:00 | XMS_ITS | Encounter Summary ---
Author Organization [facility] Address [address] [facility] [address] [place] [phone] Phone Care Team Providers Care Animator Name Role Phone Unavailable Primary Care Provider Unavailabl e Reason for Visit * MRI/CAT Scan - Closed Specialty Diagnoses / Procedures Referred By Contac t Referred To Contact Procedures MRI Outside Upper Extremity (No Interpretation) Devon Wing Jp, MD [address] [facility] [place] [address] Phone: tel: fax: mailto:[email or web address] Referral ID Status Reason Start Date Expiration Date Visits Re quested Visits Authorized [id number] Closed 06/09/2017 06/09/2018 1 1 Encounter Details Date Type Department Care Team (Late st Contact Info) Description 11/10/2016 Hospital Encounter [facility] [address] [place] [address] Devon Wing Jp, MD [address] [facility] [place] [address] [email or web address] Social History Tobacco Use Types Packs/Day Years Used Date Smoking Tobacco: Never Smokeless Tobacco: Never Education Answer Date Recorded Are you interested in more education? Not on gildardo e 12/31/2022 Are you concerned about learning? Not on file 12/31/2022 No 12/31/2022 No 12/31/2022 Digital Access Answer Date Recorded No 01/31/2023 No 01/31/2023 Reliable internet access at home? Not on file 01/31/2023 Device with a working camera? Not on file Comments Unknown Sex and Gender Information Value Date Recorded Sex Assigned at Not on file Legal Sex Female 2:23 PM EDT Gender Identity Not on file Sexual Orientation Not on file documented as of this encounter Plan of Treatment Not on file documented as of this encounter Procedures Procedure Name Priority Date/Time Associated Diagnosis Comments MRI UPPER EXTREMITY OUTSIDE (NO INTERPRETATION) Routine 11/10/2016 12:00 AM EST documented in this encounter Results * MRI Outside Upper Extremity (No Interpretation) (11/10/2016 12:00 AM EST) Narrative [facility] - 06/09/2017 10:10 AM EDT This study is for PACS storage only and not for interpretation. us Devon Wing MD IMG OUTSIDE IMAGING W/OUT INTER PRETATION Final Result [facility] documented in this encounter Visit Diagnoses Not on filedocumented in this encounter Additional Source Comments The information contained in this document represents components of the legal health record. It is not the complete legal health record.[facility]
--- OUTSIDE RECORDS SUMMARY | 2016-11-12 01:00 | XMS_ITS | Encounter Summary ---
Author Organization [facility] Address [address] [facility] [place] [phone] Phone Care Team Providers Care Radiochemical Technician Name Role Phone Unavailable Primary Care Provider Unavailabl e Encounter Details Date Type Department Care Team (Late st Contact Info) Description 11/12/2016 Hospital Encounter [facility] [address] [place] [address] Devon Wing Jp, MD [address] [facility] [address] [place] [address] [email or web address] Social History Tobacco Use Types Packs/Day [...] (No Interpretation) (11/12/2016 12:00 AM EST) Narrative [facility] INTER[facility]AC[facility] - 06/09/2017 10:10 AM EDT This study is for PACS storage only and not for interpretation. us Devon Wing MD IMG OUTSIDE IMAGING W/OUT INTER PRETATION Final Result [facility] documented in this encounter Visit Diagnoses Not on filedocumented in this encounter Additional Source Comments The information contained in this document represents components of the legal health record. It is not the complete legal health record.[facility]
--- OUTSIDE RECORDS SUMMARY | 2025-06-05 07:44 | XMS_ITS | Data Portability ---
Author Organization [place] - [facility], Allergy Address [address] [address] Care Team Providers Care Loan Services Professional Name Role Phone MORENA MARTINES Primary Care [...] will get audiometric testing at that time. [email or web address] Not available 05/28/2024 10:00:21 09/06/2024 09/06/2024 74 [...] then be referred for hearing aid evaluation. [email or web address] Not available 10/29/2024 15:06:57 Plan of Treatment Reminders Order Date Submit Date Provider Last Modified By Organization Details Last Modified Time Details Appointments Establish ed 15 2024 09:30A M ODIN JUNG PA-C Not available Not available Not available Hearing Test 2024 10:00A M Hearing Test Not available Not available Not available Lab None recorded. Referral None recorded. Procedures None recorded. Surgeries None recorded. Imaging None recorded. Medication Orders None recorded. Patient TargetsNo targets recorded. Patient Instructions Encounter Date Encounter Id Patient Instructions Last Modified By Organization Details Last Modified Time 04/30/2024 [id number] Nursing Documentation for Allergy Testing: Ordering Provider Dr. Britt Weight:lbs: kg: PFT Yes With Bronchodilator Yes approval needed to proceed with allergy testing? No ok'd testing History of Asthma:No Asthma Meds: Last used: Asthma exacerbated by: Chance that : N/A Fear of needles: No Regular medications reviewed in Computer: Yes Medication allergies: Reviewed Antihistamine use: No Medications used: Food Allergies: none Any foods make your mouth feeling itchy: No If yes: History of severe reaction where had to go to ER? No If yes details: Type of heat in home: Forced Air Pets: Yes If yes: 1 cat Smoker: Never If former smoker-how much / day for how long When quit years ago Smoking now-how much /day for how long Occupation/Social History: working out everyday Symptoms having: Runny Nose If other: cough ,ear blockage, runny nose Frequency Year Round Spirometry Contraindications: Heart attack in the last 3 months: No Major surgery in last 3 months: No Detached retina(serious eye issues) in last 2 months: No Hospitilization in last month: No Proceed with PFT Yes approval needed: No Nursing Notes: Pt tolerated test well Yes Benadryl cream to test sites Yes Patient became syncopal-placed in supine position No Large reactions to MQT, reschedule IDT for a different date No Other: Written by: Roxann Valdes [email or web address] Not available 04/30/2024 09:34:48 Reason for Referral None Reported. Results Created Date Observation Date Name Description Value Unit Range Abnormal Flag Note LastModifiedBy Organization Detail LastModifiedTime 04/24/20 24 11/17/2022 imagi ng/di agnos tic resul t No [...] ation record ed. [email or web address] Not Available 16:14:15 04/24/20 24 06/09/2020 imagi ng/di agnos tic resul t No observ ation record ed. [email or web address] Not Available 16:14:19 04/24/2007/06/2023 imagi ng/di agnos tic resul t No observ ation record ed. [email or web address] Not Available 16:14:21 04/24/20 24 07/19/2019 imagi ng/di agnos tic resul t No observ ation record ed. [email or web address] Not Available 16:14:22 04/24/20 11/28/2023 audio gram No observ ation record [...] record ed. [email or web address] Not Available 16:15:21 09/18/19 audio gram No observ ation record ed. [email or web address] Not Available 2024 08:58:57 Result Notes None recorded. Problems Name Problem SNOMED Code Status Onset Date Resolution Date Notes Provider Name and Address Organization Details Recorded Time Sensorin eural hearing loss in right ear 86315181701 100 Active 2016 Sensorin eural hearing loss, unilater al, right ear, with restrict ed hearing on the contrala teral side; Note: Date Diagnose d: 7 11:28 AM (H90.A21 ) Not Available [facility] 4 02:48:41 Mixed conducti ve and sensorin eural hearing loss of left ear 50214051728 107 Active 2016 Mixed conducti ve and sensorin eural hearing loss, unilater al, left ear with restrict ed hearing on the contrala teral side; Note: Date Diagnose d: 7 11:28 AM (H90.A32 ) Not Available [facility] 4 02:48:39 Abnormal auditory percepti on 59685037 Active 2017 Other abnormal auditory percepti ons, right ear; Note: Date Diagnose d: 8 12:02 PM (H93.291 ) Other abnormal auditory percepti ons, left ear; Note: Date Diagnose d: 7 11:55 AM (H93.292 ) ; Start Date : 03/17/20 17 Not Available [facility] 4 02:48:41 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 , bilatera l; Note: Date Diagnose d: 8 11:07 AM (H74.03) Not Available [facility] 4 02:48:39 Sensorin eural hearing loss of bilatera l ears 566251791 Active 2017 Sensorin eural hearing loss, bilatera l; Note: Date Diagnose d: 04/07/2018 11:52 AM (H90.3) Not Available [facility] 4 02:48:37 Disorder of right Eustachi an tube 69829212349 57850 Active 2017 Other specifie d disorder s of Eustachi an tube, right ear; Note: Date Diagnose d: 04/07/2018 11:52 AM (H69.81) Not Available [facility] 4 02:48:42 Chronic serous otitis media of left ear 629497705 Active 2018 Chronic serous otitis media, left ear; Note: Date Diagnose d: 9 12:51 PM (H65.22) Not Available [facility] 4 02:48:38 Posterio r rhinorrh ea 90666354 Active 2019 Postnasa l drip; Note: Date Diagnose d: 0 2:52 PM (R09.82) Not Available [facility] 4 02:48:37 Allergic rhinitis 84630840 Active 2019 Perennia l allergic rhinitis ; Note: Date Diagnose d: 0 9:32 AM (J30.89) Allerg ic rhinitis , unspecif ied; Note: Date Diagnose d: 8 12:05 PM (J30.9) ; Start Date : 02/23/20 18 Not Available [facility] 4 02:48:37 Impacted cerumen of bilatera l ears 97816301582 92716 Active 2019 Impacted cerumen, bilatera l; Note: Date Diagnose d: 0 8:50 AM (H61.23) Not Available [facility] 4 02:48:38 Bilatera l chronic serous otitis 473840648 Active 2019 Chronic serous otitis media, bilatera l; Note: Date Diagnose d: 0 8:50 AM (H65.23) Note: Date Diagnose d: 0 8:50 AM (H65.23) Not Available [facility] 4 01:02:19 Conducti ve hearing loss, bilatera l 760088375 Active 2019 Conducti ve hearing loss, bilatera l; Note: Date Diagnose d: 0 9:25 AM (H90.0) Not Available [facility] 4 02:48:36 Disorder of left Eustachi an tube 53492861764 48524 Active 2020 Other specifie d disorder s of Eustachi an tube, left ear; Note: Date Diagnose d: 06/24/20 21 9:53 AM (H69.82) Other specifie d disorder s of Eustachi an tube, left ear; Note: Date Diagnose d: 7 11:28 AM (H69.82) ; Start Date : 03/17/20 17 Not Available [facility] 4 02:48:36 Central perforat ion of left tympanic membrane 35776266480 85178 Completed 202204/06/2024 Central perforat ion of tympanic membrane , left ear; Note: Date Diagnose d: 3 4:50 PM (H72.02) Not Available [facility] 4 02:48:41 Bilatera l disorder of Eustachi an tubes 35950403100 86967 Active 2022 Other specifie d disorder s of Eustachi an tube, bilatera l; Note: Date Diagnose d: 3 12:04 PM (H69.83) Other specifie d disorder s of Eustachi an tube, bilatera l; Note: Date Diagnose d: 9 11:56 AM (H69.83) ; Start Date : 05/17/20 19 Not Available [facility] 4 02:48:40 Otalgia of left ear 1211645895 Active 2022 Otalgia, left ear; Note: Date Diagnose d: 3 12:04 PM (H92.02) Not Available [facility] 4 02:48:40 Mixed conducti ve and sensorin eural hearing loss of right ear 55555186896 105 Active 2022 Mixed conducti ve and sensorin eural hearing loss, unilater al, right ear with restrict ed hearing on the contrala teral side; Note: Date Diagnose d: 3 1:42 PM (H90.A31 ) Not Available [facility] 4 02:48:40 Mixed conducti ve and sensorin eural hearing loss, bilatera l 013926692 Active 2022 Mixed conducti ve and sensorin eural hearing loss, bilatera l; Note: Date Diagnose d: 3 10:43 AM (H90.6) Mixed conducti ve and sensorin eural hearing loss, bilatera l; Note: Date Diagnose d: 8 10:51 AM (H90.6) ; Start Date : 02/23/20 18 Not Available [facility] 4 02:48:42 Sensorin eural hearing loss in left ear 53155566726 109 Active 2022 Sensorin eural hearing loss, unilater al, left ear, with restrict ed hearing on the contrala teral side; Note: Date Diagnose d: 3 1:42 PM (H90.A22 ) Not Available [facility] 4 02:48:36 Seasonal allergic rhinitis 798380242 Active 2023 NICOLAS BRITT MD [address] [place] [address],[facility] [address] [place], [address] , [facility] - [facility] 4 08:52:31 Non-benji rgic rhinitis 04133662532 1 Active 2023 NICOLAS BRITT MD [address] [facility] [place] [address] [place], [address] , [facility] - [facility] 4 08:52:31 Chronic mucoid otitis media of right middle ear 57863976521 03293 Active 2023 NICOLAS BRITT MD [address] [facility] [place],[facility] [address], [place], [address] , [facility] - [facility] [place] 4 08:55:34 Problem Notes None recorded. Procedures Surgical History Date Name Laterality Status Provider Name and Address Organization Details Recorded Time 09/06/19 25 Tympanometry - 06486 completed MARIOLA FLORES [address] [facility],[place] [address], [place], [address], [facility] - [facility] 09/06/2024 14:55:55 04/30/20 24 Allergy Testing-Full completed AURY ROMERO [address] [facility],[place] [address], [place], [address], [facility] 04/30/2024 10:12:56 Myringotomy Tube Placement completed Meghna Quiros [facility] 04/16/2024 08:39:36 complete repair of rotator cuff completed Meghna Quiros [place] - [facility] 04/16/2024 08:39:43 lumpectomy of breast completed Meghna Quiros [place] - [facility] 04/16/2024 08:39:48 Imaging Results None recorded. Procedure Notes None recorded. Medical Equipment None Reported. Allergies Allergen ID Allergen Name Allergen Category Reaction Reaction Severity Criticality Documentation Date Start Date Code Code System Note Provider Name and Address Organization Details Recorded Time 01419 naproxen medicatio n other Not available Not available 01/17/2024 7258 RxNorm React ion: unkno wn, unspe cifie d;; Not Available [facility] 4 01:04:54 Medications Name Sig Start Date Stop [...] eye drops 09/20 completed Medicati on ID: [id number] P carmel [place] By Name: Yvonne Cedillo nd Name: ofloxaci n Send Method: E-Prescr ibed Sub s Allowed: subs OK Speci al Instruct ion: apply 5 drops to each ear BID x 3 days Med icationG enericNa me: ofloxaci n Not Available Not Available Not Available Medrol (Aurelio) 4 mg tablets in a dose pack 04/16 completed Medicati on ID: [id number] D uration Value: 6 Brand Name: Medrol (Aurelio) Se nd Method: E-Prescr ibed Sub s Allowed: subs ATA Ruiz al Instruct ion: Take 1 pack as [...] eye drops 04/16 completed Medicati on ID: [id number] D uration Value: 14 Brand Name: Ciloxan [...] a day 04/16 completed Medicati on ID: [id number] D uration Value: 14 Brand Name: ofloxaci n Send Method: E-Prescr ibed Sub s Allowed: subs OK Speci al Instruct ion: x 14 days Med icationG enericNa me: ofloxaci n Not Available Not Available Not Available lorazepam 0.5 mg tablet TAKE 1 TABLET BY MOUTH ONCE DAILY NEEDED FOR ANXIETY active Not Available Not Available No t Available cephalexi n 500 mg capsule TAKE 1 CAPSULE BY MOUTH THREE TIMES DAILY FOR 10 DAYS 06/03 completed Not Available Not Available Not Available fluticaso ne propionat e 50 mcg/actua tion nasal spray,[place] pension USE 2 SPRAY(S) IN EACH NOSTRIL ONCE DAILY 04/30 completed Not Available Not Available Not Available ipratropi um bromide 21 mcg (0.03 %) nasal spray 2 spray into both nostrils 04/30 completed Medicati on ID: [id number] D uration Value: 30 Prescri bed By Name: SANJAY Garrison nd Name: ipratrop ium bromide Send Method: E-Prescr ibed Sub s Allowed: subs OK Medic ationGen ericName : ipratrop ium bromide Not Available Not Available Not Available amoxicill in 500 mg-potass ium clavulana te 125 mg tablet TAKE 1 TABLET BY MOUTH EVERY 12 HOURS FOR 5 DAYS 06/03 completed Not Available Not Available Not Available Ventolin HFA 90 mcg/actua tion aerosol inhaler 06/24 completed Medicati on ID: [id number] D uration Value: 50 Brand Name: Ventolin HFA Send Method: E-Prescr ibed Sub s Allowed: subs OK Medic ationGen ericName : Ventolin HFA Not Available Not Available Not Available neomycin- polymyxin -hydrocor t 3.5 mg-10,000 unit/mL-1 % ear drops,[place] p Instill 4 drop twice a day 04/16 completed Medicati on ID: [id number] D uration Value: 14 Brand Name: neomycin -polymyx in-HC Se nd Method: E-Prescr ibed Sub s Allowed: subs OK Medic ationGen ericName : neomycin -polymyx in-HC Not Available Not Available Not Available TobraDex 0.3 %-0.1 % eye drops,[place] pension 11/23 completed Medicati on ID: [id number] D uration Value: 14 Prescri bed By [...] lable Vitals Date Recorded Body height Body mass index (BMI) Body weight Provider Name and Address Organization Details Last Updated DateTime 09/06/2024 157.48 cm 23.4 kg/m2 86981.82 g Genoveva Ho [place] - [facility] 09/06/2024 14:28:29 Date Recorded Body height Body weight Provider Name and Address Organization Details Last Updated DateTime 10/29/2024 157.48 cm 29972.82 g Meghna Quiros [place] - [facility] 10/29/2024 14:31:56 Date Recorded Heart rate Oxygen saturation Oxygen saturation in Arterial blood by Pulse oximetry Body weight Body mass index (BMI) Body height Systolic And Diastolic Provider Name and Address Organization Details Last Updated DateTime 4 76 /min 100 % 100 % 29503.4 2 g 23.6 kg/m2 157.48 cm 145/75 mm[Hg] AURY ROMERO [address] [place] [address], [address], [place] - [facility] 09:06:33 Date Recorded Body height Body weight Provider Name and Address Organization Details Last Updated DateTime 05/28/2024 157.48 cm 73253.42 g Meghna Quiros [place] [facility] 05/28/2024 09:27:23 Social History None recorded. Functional Status None recorded. Mental Status None recorded. Family History Nothing Reported. Medical History Condition Response Allergies/Hayfever N Heart Problems N Anxiety N Tonsil Infections N Emphysema N Migraines N Thyroid Problems N Glaucoma N Depression N COPD N Developmental Delay N Nasal or Sinus Problems Y Anemia N Immune System Disorder N Anesthesia Complications N Heart Attack (SD) N Other Skin Condition N Diabetes N [...] Diagnosis SNOMED-CT Code Diagnosis ICD10 Code Diagnosis IMO Codes Diagnosis Note [id number] NICOLAS BRITT MD [facility] [address] [address] 04/16/2024 08:25:25 04/16/2024 09:01:47 Bilateral disorder of Eustachian tubes 0992508277 872468 H69.83 Allergic rhinitis 067074 04 J30.89 J30.9 Chronic mu coid otitis media of right middle ear 7553790602 814308 H65.31 [id number] AURY ROMERO [facility] [address] [place] [address] 04/30/2024 08:46:22 04/30/2024 11:01:28 Allergic rhinitis 44089070 J30.89 J30.9 [id number] NICOLAS BRITT MD [facility] on [address] [place] [address], [place] [address] 05/28/2024 09:23:03 05/28/2024 10:03:21 Bilateral disorder of Eustachian tubes 7626001747 514568 H69.83 Chronic se maddie otitis media of left ear 038767230 H65.22 Conductive hearing loss, bilateral 720885227 H90.0 [id number] OLGA MCRAE PA-C [facility] on [address] [place] [address], [place] [address] 09/06/2024 13:58:29 09/06/2024 14:57:32 Bilateral chronic serous otitis 828339469 H65.23 Bilateral disorder of Eustachian tubes 9200032263 277850 H69.83 [id number] MARIOLA FLORES [facility] on [address] [place] [address], [place] [address] 09/06/2024 14:54:52 09/07/2024 16:09:58 Bilateral disorder of Eustachian tubes 5811462547 734148 H69.83 Tympanomet ry: Right: Type B Left: B [id number] NICOLAS BRITT MD [facility] on [address] [place] [address], [place] [address] 10/29/2024 14:27:52 10/29/2024 15:24:50 Bilateral disorder of Eustachian tubes 9176162165 036154 H69.83 Chronic se maddie otitis media of left ear 365419058 H65.22 Conductive hearing loss, bilateral 318587786 H90.0 Health Concerns Section Related Observation LastModified by Organization Detai ls LastModified Time None Recorded Concern Status LastModified by Organization Details LastModified Time None Recorded Advance Directives Directive None Recorded Payers Insurance Date Sequence Insurance Name Policy Number Policy Henderson Covered Member ID Henderson Member ID Guarantor Name 06/03/2025 1 [place] [employer] Rachel Forbes [id number] Rachel Forbes 06/05/2025 2 [place] [id number] Rachel Forbes [id number] Rachel Forbes Notes Date Note Type [...] out every morning. NICOLAS BRITT MD [address] [facility],[address], [address], [facility] - [facility] 05/28/2024 10:00:52 09/06/2024 text/html ROS as noted in the HPI 74 year old female presents to the office reporting a few weeks of bilateral blocked ear sensation. She cannot get the Eustachi device to work. She does try to autoinsufflate several times daily. She is very hesitant to use Flonase as she does not like the idea of using a medication daily. BREN TORRES MD [address] [facility],[address], [address], [facility] - [facility] 09/08/2024 08:40:44 09/06/2024 text/html Seeing Olga VAUGHN today who ordered tympanometry due to Rachel feeling that there is fluid in her ears. She has a hx of fluid and infections. MARIOLA FLORES [address] [facility],[address], [address], [facility] - [facility] 09/06/2024 14:56:33 10/29/2024 text/html Patient with a [...] every morning. She was seen by Olga Mcrae PA-C who also recommended she start Flonase she did this for 1 bottle worth, but did not get anymore. NICOLAS BRITT MD [address] [place] [address], [address], [facility] - [facility] 10/29/2024 15:07:18 OBGyn Episode No OBEpisode recorded.
--- OUTSIDE RECORDS SUMMARY | 2025-06-05 07:44 | XMS_ITS | Clinical Summary ---
Author Organization [facility] Address [address] [facility] [address] [place] [address] Phone Care Team Providers Care Grants Assistant Name Role Phone Marry Argueta MD Primary Care Provider [phone] Allergies Active Allergy Reactions Criticality Noted Date Comments Naproxen GI Upset,Other (See Comments) 2024 naproxen Medications anastrozole (ARIMIDEX) 1 mg tablet 11/21/2019 Active omega-3 fatty acids-fish oil 300-1,000 mg Cap Take by mouth daily. Active calcium citrate-vitamin D3 (CITRACAL+D) 315 mg-5 mcg (200 unit) per tablet 2 tablets every day by oral route. Active multivit 05-ludb-fcctdw 6-dha 29 mg iron-1 mg -300 mg Cap Take 1 capsule by mouth daily. Active Encounters Date Type Department Care Team Description 04/04/2025 1:30 PM EDT [place] [facility] [place] Surgery, Shoulder Service [address] [facility] [address], [address] [place] [id number] Devon Wing Jp, MD Rotator cuff tear arthropathy of right shoulder (Primary Dx) from Last 3 Months Social History Tobacco Use Types Packs/Day Years Used Date Smoking Tobacco: Never Smokeless Tobacco: Never Tobacco Cessation:Counseling Given: Not Answered Education Answer Date Recorded Are you interested [...] on file Sexual Orientation Not on file Last Filed Vital Signs Vital Sign Reading Time Taken Comments Blood Pressure - - Pulse - - Temperature - - Respiratory Rate - - Oxygen Saturation - - Inhaled Oxygen Concentration - - Weight 58.1 kg (128 lb) 04/04/2025 1:54 PM EDT Height 157.5 cm (5' 2 ) 04/04/2025 1:54 PM EDT Body Mass Index 23.41 04/04/2025 1:54 PM EDT Plan of Treatment Health Maintenance Due Date Last Done Comments LIPID PANEL 1949 DEPRESSION SCREENING 1961 HEPATITIS C SCREENING 1967 ZOSTER VACCINES (2 of 3) 07/30/2013 06/04/2013, 05/07 OSTEOPOROSIS SCREENING INITIAL (ONE-TIME) 2014 PNEUMOCOCCAL VACCINES (50+ years) (2 of 2 - PCV) 05/23/2015 05/23/2014 Adult Td,Tdap Booster 02/03/2022 02/04/2012 RSV VACCINE (1 - 1-dose 75+ series) 2024 INFLUENZA VACCINE (#1) 2025 , 06/21/2022, 09/29/2021, Additional history exists COVID-19 VACCINE ( - 2024- season) 2025 07/16/2021, 12/15/2020, 11/24/2020 SMOKING STATUS SCREENING (Once After 26 Yrs) Completed 02/15/2025 HEPATITIS A VACCINES Aged Out No long er eligible based on patient's age to complete this topic HIB VACCINES Aged Out No longer eligi ble based on patient's age to complete this topic MENINGOCOCCAL VACCINES (ACWY) Aged Out No longer eligible based on patient's age to complete this topic MENINGOCOCCAL VACCINES (B) Aged Out N o longer eligible based on patient's age to complete this topic Medical Devices Not on file Insurance MEDICARE PART A & B [employer] SUPPLEMENT MEDICARE PART A & B [employer] SUPPLEMENT MEDICARE PART A & B [facility] MEDEX SUPPLEMENT MEDICARE PART A & B [employer] SUPPLEMENT MEDICARE PART A & B [employer] SUPPLEMENT MEDICARE PART A & B [employer] SUPPLEMENT MEDICARE PART A & B [employer] SUPPLEMENT MEDICARE PART A & B [employer] SUPPLEMENT MEDICARE PART A & B [employer] SUPPLEMENT Care Teams Grants Assistant Relationship Specialty Start Date End Date Marry Argueta MD [address] [place] [address] PCP - General Internal Medicine 01/04/17 Additional Source Comments The information contained in this document represents components of the legal health record. It is not the complete legal health record.[facility]
--- OUTSIDE RECORDS SUMMARY | 2025-06-05 07:44 | XMS_ITS | Encounter Summary ---
Author Organization [facility] Address [address] [place] [address] Phone Care Team Providers Care Lock Assembler Name Role Phone Marry Argueta MD Primary Care Provider Encounter Details Date Type Department Care Team (Late st Contact Info) Description 06/09/2017 Procedure Pass [facility] [address] [place] [address] Social History Tobacco Use Types Packs/Day Years Used Date Smoking Tobacco: Never Smokeless Tobacco: Never Comments Unknown Sex and Gender Information Value Date Recorded Sex Assigned at Not on file Legal Sex Female 2:23 PM EDT Gender Identity Not on file Sexual Orientation Not on file documented as of this encounter Plan of Treatment Not on file documented as of this encounter Visit Diagnoses Not on filedocumented in this encounter Care Teams Lock Assembler Relationship Specialty Start Date End Date Marry Argueta MD [address] [facility] [address] [place] [address] PCP - General Internal Medicine 01/04/17 documented as of this encounter Additional Source Comments The information contained in this document represents components of the legal health record. It is not the complete legal health record.[facility]
--- OUTSIDE RECORDS SUMMARY | 2025-06-05 07:44 | XMS_ITS | Patient Health Record ---
Author Organization [facility] Address [address] [address] Care Team Providers Care Tube Wrapper Name Role Phone Maci Obrien Unavailable [phone] Allergies No Known Allergies Reason For Referral [...] Status Risk Notes Problem Postmenopausal atrophic vaginitis (89848748) Postmenopausal atrophic vaginitis (N95.2) Active confirmed Problem Personal history of primary malignant neoplasm of breast (637206508) Personal history of malignant neoplasm of breast (Z85.3) Active confirmed Plan Of Treatment Pending Test Test Name Order Date THIN PREP,HPV,ZEUS IF HPV+ (>29YR)(SCRN) 07/07/2016 Insurance Providers Payer Name Payer Address Payer Phone Subscriber Number Group Number Insured Name Patient Relationship to Insured Coverage Start Date Coverage End Date MEDICARE [address] JACKIE RUGGIERO [id number] EVA SO Self - patient is the insured MEDEX [address] [place] [address] [id number] EVA SO Self - patient is [...]
[2025-06-05 10:05] LABS: MANUAL DIFF FLAG NO
[2025-06-05 10:12] LABS: Hematocrit 39.6 % (37.0-47.0); Hemoglobin 14.8 g/dl (12.0-16.0); Imm Gran Abs Auto 0.03 X10*3/uL (0.00-0.03); Imm Gran Pct Auto 0.6 % (0.0-0.4); Lymphocytes Absolute Auto 0.9 X10*3/uL (1.2-4.9); Mean Corpuscular HGB Conc 37.4 g/dl (31.0-35.0); Mean Corpuscular Hemoglobin 32.9 pg (27.0-33.0); Mean Corpuscular Volume 88.0 fL (80.0-98.0); NRBC Abs Auto 0.000 X10*3/uL (0.0-0.012); NRBC Pct Auto 0.0 /100WBC (0.0-0.2); Platelet Count 262 X10*3/uL (160-400); Red Blood Count 4.50 X10*6/uL (4.20-5.50); White Blood Count 5.5 X10*3/uL (4.8-10.8)
[2025-06-05 10:55] LABS: Alanine Aminotransferase 26 U/L (0-31); Albumin Level 4.3 g/dL (3.5-5.0); Alkaline Phosphatase 63 U/L (39-117); Anion Gap 10 (12-20); Aspartate Amino Transferase 30 U/L (5-31); Blood Urea Nitrogen 22 mg/dL (9-16); Calcium 9.4 mg/dL (8.4-10.2); Carbon Dioxide 26 mmol/L (22-29); Chloride 102 mmol/L (96-108); Cholesterol 190 mg/dL (<200); Estimated Glomerular Filt Rate > 60; HDL Cholesterol 71 mg/dL (>40); Potassium 4.2 mmol/L (3.3-5.1); Sodium 134 mmol/L (135-145); Total Protein 6.2 g/dL (6.5-8.0); Triglycerides 102 mg/dL (<150)
== END 2025-06-05 07:40 | disposition home or self-care (01) ==
LOC: HO.HMGCLDS 07:39
PROVIDERS: PCP Internal Medicine; Visit Provider Internal Medicine
DX: Z00.00 Encounter for general adult medical examination without abnormal findings (principal); Z13.6 Encounter for screening for cardiovascular disorders; E55.9 Vitamin D deficiency, unspecified
CPT/HCPCS: 36415; 80053; 80061; 82306; 84443; 85025

== ENCOUNTER 2025-06-06 13:30 | Outpatient (AMB) | payer MEDICARE, SELFPAY ==
--- OUTSIDE RECORDS SUMMARY | 2016-11-10 01:00 | XMS_ITS | Encounter Summary ---
Author Organization [facility] Address [address] [facility] [address] [place] [address] Phone Care Team Providers Care Forensic Locksmith Name Role Phone Unavailable Primary Care Provider Unavailabl e Reason for Visit * MRI/CAT Scan - Closed Specialty Diagnoses / Procedures Referred By Contac t Referred To Contact Procedures MRI Outside Upper Extremity (No Interpretation) Devon Wing Jp, MD [address] [facility] [place] [address] Phone: tel: fax: mailto:[email or web address] Referral ID Status Reason Start Date Expiration Date Visits Re quested Visits Authorized [id number] Closed 06/09/2017 06/09/2018 1 1 Encounter Details Date Type Department Care Team (Late st Contact Info) Description 11/10/2016 Hospital Encounter [facility] [address] [place] [address] Devon Wing Jp, MD [address] [facility] [place] [address] [email or web address] Social History Tobacco Use Types Packs/Day Years [...] (No Interpretation) (11/10/2016 12:00 AM EST) Narrative [facility] [place] - 06/09/2017 10:10 AM EDT This study is for PACS storage only and not for interpretation. us Devon Wing MD IMG OUTSIDE IMAGING W/OUT INTER PRETATION Final Result [facility] documented in this encounter Visit Diagnoses Not on filedocumented in this encounter Additional Source Comments The information contained in this document represents components of the legal health record. It is not the complete legal health record.[facility]
--- OUTSIDE RECORDS SUMMARY | 2016-11-12 01:00 | XMS_ITS | Encounter Summary ---
Author Organization [facility] Address [address] [place] [phone] Phone Care Team Providers Care Research Rn Spec Name Role Phone Unavailable Primary Care Provider Unavailabl e Encounter Details Date Type Department Care Team (Late st Contact Info) Description 11/12/2016 Hospital Encounter [facility] [address] [place] [address] Devon Wing Jp, MD [address] [facility] [address] [place] [address] [email or web address] Social History Tobacco Use Types Packs/Day Years [...] Procedure Name Priority Date/Time Associated Diagnosis Comments XR UPPER EXTREMITY OUTSIDE (NO INTERPRETATION) Routine 11/12/2016 12:00 AM EST documented in this encounter Results * XR Upper Extremity Outside (No Interpretation) (11/12/2016 12:00 AM EST) Narrative [facility] - 06/09/2017 10:10 AM EDT This study is for PACS storage only and not for interpretation. us Devon Wing MD IMG OUTSIDE IMAGING W/OUT INTER PRETATION Final Result [facility] documented in this encounter Visit Diagnoses Not on filedocumented in this encounter Additional Source Comments The information contained in this document represents components of the legal health record. It is not the complete legal health record.[facility]
--- NOTE | 2025-06-06 13:33 | A.OFFVIS_ITS ---
Intake Vital Signs 06/06/25 13:34 Height 5 ft 2 in Weight 130 lb BMI 23.8 BP 110/66 Blood Pressure Location Rt brachial Position Sitting Respiration 18 Pulse 71 Pulse Source Pulse Oximeter Temp 97.8 F Temp Source Oral Pulse Oximetry (%) 98 Oxygen Delivery Method Room Air Intake Visit Reasons: SWV G0439 Allergies Sulfa (Sulfonamide Antibiotics) Allergy (Mild, Verified 06/06/25 13:38) Rash naproxen Adverse Reaction (Mild, Verified 06/06/25 13:38) stomach ache. Medication List - Last Reconciled 06/06/25 by Marry Argueta MD anastrozole mg PO calcium carbonate-vitamin D3 600 mg-5 mcg (200 unit) 1,200-200 lactobacillus combination no.9 (Adult 50 Plus Probiotic) PO lorazepam 0.5 mg PO DAILY PRN magnesium glycinate PO multivitamin 1 tab PO DAILY omega-3 fatty acids (Fish Oil) PO HPI SWV G0439 HPI Details Initiated the conversation about Advanced Directives. Advanced Directives help? patients prepare for current and future decisions about their medical treatment? and place of care. Discussed with patient that it is a process where a patients? current condition and prognosis are reviewed, their wishes for information? regarding their illness are elicited, and likely medical dilemmas are presented? and options discussed. The form can be amended as needed, reviewed yearly and? make changes as needed IPPE/AWV ? year old presents? for her ? Annual? Wellness Visit, initial visit.? Medical / Social History Reviewed? Past Medical History ?Yes? . ? Alexander? of Care / Care Team list updated ?Yes . ? Surgical/Hospitalization? History ?Yes . ? Current Medications? (including OTC and supplements) ?Yes . ? Family History ?Yes? . ? Tobacco? Control form ?Yes . ? AUDIT-C (Alcohol use) form? ?Yes . ? Illicit drug use in Social? History ?Yes . ? Current diagnosis of? depression? ?No ? Appropriate PHQ2/PHQ9? completed ?Yes . ? Data entered by ?Medical? Batting Machine Operator and reviewed by provider ? Fall Risk ? Fall? History? Have you had any falls with? injury in the past year? ?No . ? Have you had two or more? falls in the past year? ?No . ? Fall Risk Assessment: ?No? falls in the past year . ? HRA filled out by? the patient, reviewed by Provider and scanned. ? IPPE/AWV ? Balance? Romberg? ?Yes . ? Tandem? walk ?Yes . ? Walk and? Turn ?Yes . ? Rise from? sit to stand ?Yes . ?Vision? Corrective? lens ?Yes ? Vision? screen ? Up-to-date, has an appointment [] for vision? screening and glaucoma screening ?Hearing? Whisper? test ?pass .? Initiated the conversation about Advanced Directives. Advanced Directives help? patients prepare for current and future decisions about their medical treatment? and place of care. Discussed with patient that it is a process where a patients? current condition and prognosis are reviewed, their wishes for information? regarding their illness are elicited, and likely medical dilemmas are presented? and options discussed. The form can be amended as needed, reviewed yearly and? make changes as needed Written? Plan?Completed. See Patient? Documents. [facility] Medical History (Updated 06/06/25 @ 13:57 by Marry Argueta MD) Osteoporosis Pain in thumb joint with movement of left hand Hematuria Recurrent cancer of left breast Vitamin D deficiency Surgical History History of axillary surgery H/O rotator cuff surgery S/P lumpectomy, left breast H/O colonoscopy Family History Father No problems noted. Mother No problems noted. Social History Housing: Condominium Alcohol intake: current Alcohol intake frequency: does not drink Patient Tobacco Use Status: Former Tobacco user e-Cigarette/Vaping Use: Never Used service: No Current occupational status: retired Cognitive needs: No Hearing needs: No Vision needs: No Questionnaire Medicare Wellness Checkup [age] What gender do you identify with?: female During the past 4 weeks, how much have you been bothered by emotional problems such as feeling anxious, depressed, irritable, sad or downhearted, and blue?: not at all During the past 4 weeks, has your physical & emotional health limited your social activities with family, friends, neighbors, or groups?: not at all During the past 4 weeks, how much bodily pain have you generally had?: no pain During the past 4 weeks, was someone available to help you if you needed & wanted help?: yes, as much as I wanted During the past 4 weeks, what was the hardest physical activity you could do for at least 2 minutes?: very heavy Can you get to places out of walking distance without help? (For eg., can you travel alone on buses, taxis or drive your car?): Yes Can you go shopping for groceries or clothes without someone's help?: Yes Can you prepare your own meals?: Yes Can you do your housework without help?: Yes Because of any health problems, do you need the help of another person with your personal care needs such as eating, bathing, dressing or getting around the house?: No Can you handle your own money without help?: Yes During the past 4 weeks, how would you rate your health in general?: very good During the past 4 weeks how have things been going for you?: pretty well Are you having difficulties driving your car?: no Do you always fasten your seat belt when you are in a car?: yes, usually During past 4 weeks, have you been bothered by the following: never: Falling or dizzy when standing up, Sexual problems?, Trouble eating well?, Teeth or denture problems?, Problems using the telephone? and Tiredness or fatigue? Have you fallen 2 or more times in the past year?: No Are you afraid of falling?: No Are you a smoker?: no During the past 4 weeks, how many drinks of wine, beer, or other alcoholic beverages did you have?: 1 drink or less per week Do you exercise for about 20 minutes 3 or more times a week?: yes, most of the time Have you been given information to help with the following?: no: Hazards in your house that might hurt you? and no: Keeping track of your medications? How often do you have trouble taking medicines the way you have been told to take them?: I always take medicine as prescribed How confident are you that you can control & manage most of your health proble ms?: very confident What is your race?: White Mini Mental State Exam (MMSE) Orientation What is the (year) (season) (date) (day) (month)?: year, season, date, day and month Where are we (state) (county) (town or city) (hospital) (floor)?: state, county, town or city, hospital/clinic and floor Registration Name of 3 unrelated objects clearly and slowly, then ask patient to repeat all 3 of them. (1st repeat determines score. Make sure they can repeat all three): object 1, object 2 and object 3 Attention & Calculation (CHOOSE ONE) Ask pt to begin with 100 & count backward by 7. Stop after 5 repeats. If pt cannot ask them to spell the word WORLD backward.: 93 Spell WORLD backwards (DLROW): 5 letters Recall Ask patient to repeat the 3 items from question #3.: object 1, object 2 and object 3 Language Show patient a wristwatch & ask what it is. Repeat for pencil.: watch and pencil Ask the patient to repeat the phrase 'No ifs, ands, or buts' after you.: correct Ask the patient to 'take a piece of paper with their right hand' 'fold paper in half' 'place paper on floor': take paper in right hand, fold paper in half and place paper on floor Print the sentence 'CLOSE YOUR EYES' on a piece. If patient actually closes eyes then score.: followed written direction Give patient a blank piece of paper & ask to write a sentence. Score if it contains a noun & verb.: sentence contains subject and verb Score Score: 30 PHQ-9 Over the last 2 weeks, how often have you been bothered by any of the following problems? 1. Little interest or pleasure in doing things: not at all 2. Feeling down, depressed, or hopeless: not at all 3. Trouble falling or staying asleep, or sleeping too much: not at all 4. Feeling tired or having little energy: not at all 5. Poor appetite or overeating: not at all 6. Feeling bad about yourself - or that you are a failure or have let yourself or your family down: not at all 7. Trouble concentrating on things, such as reading the newspaper or watching television: not at all 8. Moving or speaking so slowly that other people could have noticed. Or the opposite - being so fidgety or restless that you have been moving around a lot more than usual: not at all 9. Thoughts that you would be better off or of hurting yourself in some way: not at all Total score: 0 Depression Screening Interpretation: Negative Depression Screening Done: Yes 93174 - PHQ-9 Billing: Yes Source: Developed by Drs. Devan Sanches, Agnes Goetz, Cristhian Lezama and colleagues, with an educational janet from [employer]. Review of Systems Const All systems reviewed & are unremarkable except as noted in HPI and below Eyes Reports no additional complaints ENT Reports no additional complaints Card Reports no additional complaints Resp Reports no additional complaints GI Reports no additional complaints Reports no additional complaints Physical Exam Vital Signs: Last Vital Signs Temp 97.8 F 06/06/25 13:34 Pulse 71 06/06/25 13:34 Resp 18 06/06/25 13:34 BP 110/66 06/06/25 13:34 Pulse Ox 98 06/06/25 13:34 Oxygen Delivery Method Room Air 06/06/25 13:34 BMI result Body Mass Index 23.8 Const General: no acute distress HEENT Head: Yes normal to inspection Eyes General: appearance normal, both eyes and all related structures Neck Neck: Yes no lymphadenopathy and Yes supple Resp Effort & Inspection: normal respiratory effort Auscultation: clear to auscultation bilaterally Cardio Rhythm: regular rhythm Heart sounds: S1 normal heart sound present and S2 normal heart sound present GI Inspection: Yes normal to inspection Palpation (GI): Soft to palpation Percussion: Yes normal to percussion Auscultation: normal bowel sounds Extrem General: Yes no clubbing, cyanosis or edema Immunizations pneumoc 20-jimbo conj-dip cr(PF) 0.5 mL IM syringe Performing Provider: Marry Argueta MD Performing Location: [facility] Administered by: AURY Bradley on 06/06/25 14:22 Dose Route Admin Location Dispensed Lot Number Expiration Date [facility] Grinder Tender 0.5 mL IM Right Deltoid 0.5 mL [id number] 11/02/25 [employer] Total Dispensed Waste 0.5 mL 0 % VIS Given Date VIS Provided VIS Publication Date 06/06/25 Single Vaccine 25 Eligibility Eligibility Date Funding Source Not [facility] Eligible 06/06/25 Private Assessment & Plan Assessment & Plan (1) Osteoporosis: Comment: f/u with [facility] s/p Zometa inj DEXA 2023 improved, Code(s): M81.0 - Age-related osteoporosis without current pathological fracture Plan: Continue vitamin-D and weight-bearing exercises patient is established with [facility] and had a repeat DEXA this year which showed stable osteopenia (2) Breast cancer: Comment: L breast , s/p lumpectomy 2012, Mik Wesley, took Anastazole Code(s): C50.919 - Malignant neoplasm of unspecified site of unspecified female breast Plan: On anastrozole follow-up with Oncology (3) Annual physical exam: Code(s): Z00.00 - Encounter for general adult medical examination without abnormal findings Plan: Well-balanced diet regular physical activity discussed with the patient Orders: Orders Pneumococcal 20 Immunization Today Z23 - Encounter for immunization Complete Blood Count Auto Diff 1 Year C50.919 - Malignant neoplasm of unspecified site of unspecified female breast, E55.9 - Vitamin D deficiency, unspecified, M81.0 - Age-related osteoporosis without current pathological fracture Lipid Panel 1 Year C50.919 - Malignant neoplasm of unspecified site of unspecified female breast, E55.9 - Vitamin D deficiency, unspecified, M81.0 - Age-related osteoporosis without current pathological fracture Comprehensive [place]. Panel Fast 1 Year C50.919 - Malignant neoplasm of unspecified site of unspecified female breast, E55.9 - Vitamin D deficiency, unspecified, M81.0 - Age-related osteoporosis without current pathological fracture Vitamin D 25-OH Total 1 Year C50.919 - Malignant neoplasm of unspecified site of unspecified female breast, E55.9 - Vitamin D deficiency, unspecified, M81.0 - Age-related osteoporosis without current pathological fracture Quality Reporting (2019) Depression/Bipolar (159/160/161/177) PHQ-9: Total score: 0 Coding Level of Care Code Medicare Subsequent (G0439) Diagnoses Osteoporosis M81.0 Breast cancer C50.919 Annual physical exam Z00.00 CPT Codes Advance Care Planning - Advance Care Planning discussion: On file, no changes ([id number]) Advance Care Planning - Time spent: 1-15 minutes, on File ([id number]) Additional Codes PHQ-9 - 98002 - PHQ-9 Billing: Yes ([id number]) Advance Care Planning Advance Care Planning discussion: On file, no changes Forms completed: Health Care Proxy Time spent: 1-15 minutes, on File
[2025-06-06 13:34] VITALS: BP 110/66; PULSE 71; RESP 18; TEMP 36.6; O2SAT 98; BMI 23.8
--- OUTSIDE RECORDS SUMMARY | 2025-06-06 15:00 | XMS_ITS | Clinical Summary ---
Author Organization [facility] Address [address] [facility] [address] [place] [address] Phone Care Team Providers Care Photoengraving Sketch Maker Name Role Phone Marry Argueta MD Primary Care Provider [phone] Allergies Active Allergy Reactions Criticality Noted Date Comments Naproxen GI Upset,Other (See Comments) 2024 naproxen Medications anastrozole (ARIMIDEX) 1 mg tablet 11/21/2019 Active omega-3 fatty acids-fish oil 300-1,000 mg Cap Take by mouth daily. Active calcium citrate-vitamin D3 (CITRACAL+D) 315 mg-5 mcg (200 unit) per tablet 2 tablets every day by oral route. Active multivit 42-iven-sobqra 6-dha 29 mg iron-1 mg -300 mg Cap Take 1 capsule by mouth daily. Active Encounters Date Type Department Care Team Description 04/04/2025 1:30 PM EDT Office Visit [facility] Department of Orthopaedic Surgery, Shoulder Service [address] [facility] [place] [id number] Devon Wing Jp, MD Rotator cuff tear [...] file Insurance MEDICARE PART A & B [employer] MEDEX SUPPLEMENT MEDICARE PART A & B [employer] SUPPLEMENT MEDICARE PART A & B [facility] MEDEX SUPPLEMENT MEDICARE PART A & B [employer] MEDEX SUPPLEMENT MEDICARE PART A & B [employer] MEDEX SUPPLEMENT MEDICARE PART A & B [employer] MEDEX SUPPLEMENT MEDICARE PART A & B [employer] MEDEX SUPPLEMENT MEDICARE PART A & B [employer] MEDEX SUPPLEMENT MEDICARE PART A & B [employer] MEDEX SUPPLEMENT Care Teams Photoengraving Sketch Maker Relationship Specialty Start Date End Date Marry Argueta MD [address] [place] [address] PCP - General Internal Medicine 01/04/17 Additional Source Comments The information contained in this document represents components of the legal health record. It is not the complete legal health record.[facility]
--- OUTSIDE RECORDS SUMMARY | 2025-06-06 15:00 | XMS_ITS | Encounter Summary ---
Author Organization [facility] Address [address] [place] [address] Phone Care Team Providers Care Plant Electrical Engineer Name Role Phone Marry Argueta MD Primary Care Provider [phone] Encounter Details Date Type Department Care Team (Late st Contact Info) Description 06/09/2017 Procedure [facility] [address] [place] [address] Social History Tobacco Use Types Packs/Day Years [...] on filedocumented in this encounter Care Teams Plant Electrical Engineer Relationship Specialty Start Date End Date Marry Argueta MD [address] [place] [address] PCP - General Internal Medicine 01/04/17 documented as of this encounter Additional Source Comments The information contained in this document represents components of the legal health record. It is not the complete legal health record.[facility]
--- OUTSIDE RECORDS SUMMARY | 2025-06-06 15:00 | XMS_ITS | Patient Health Record ---
Author Organization [facility] Address [address] [address] Care Team Providers Care Liability Claims Manager Name Role Phone Maci Obrien Unavailable [phone] Allergies No Known Allergies Reason For Referral [...] Status Risk Notes Problem Postmenopausal atrophic vaginitis (82592265) Postmenopausal atrophic vaginitis (N95.2) Active confirmed Problem Personal history of primary malignant neoplasm of breast (057989217) Personal history of malignant neoplasm of breast (Z85.3) Active confirmed Plan Of Treatment Pending Test Test Name Order Date THIN PREP,HPV,ZEUS IF HPV+ (>29YR)(SCRN) 07/07/2016 Insurance Providers Payer Name Payer Address Payer Phone Subscriber Number Group Number Insured Name Patient Relationship to Insured Coverage Start Date Coverage End Date MEDICARE [address] JACKIE RUGGIERO [id number] [phone] [id number] EVA SO Self - patient is the insured MEDEX [address] [place] [address] [id number] EVA SO Self - patient is [...]
--- OUTSIDE RECORDS SUMMARY | 2025-06-06 15:00 | XMS_ITS | Continuity of Care Document ---
Author Organization [place] - [facility], [facility] Address [address] [place] [address] Care Team Providers Care Mandrel Press Hand Name Role Phone MORENA MARTINES Primary Care Provider [phone] Assessment No assessment recorded. Plan of Treatment Reminders Order Date Submit Date Provider Last Modified By Organization Details Last Modified Time Details Appointments Establish ed 15 2024 09:30A M ODIN JUNG PA-C Not available Not available Not available Hearing Test 2024 10:00A M Hearing Test Not available Not available Not available Hearing Test First 2024 10:06A M Norman ABARCA Not available Not available Not available Establish ed 15 2025 10:00A M Hearing Test Not available Not available Not available Establish ed 15 2025 10:30A M ODIN JUNG PA-C Not available Not available Not available Lab None recorded. Referral None recorded. Procedures None recorded. Surgeries None recorded. Imaging None recorded. Medication Orders None recorded. Patient TargetsNo targets recorded. Patient InstructionsNo instructions recorded. Reason for Referral None Reported. Results Created Date Observation Date Name Description Value Unit Range Abnormal Flag Note LastModifiedBy Organization Detail LastModifiedTime 06/06/20 25 audio gram No observ ation record ed. BARCODE Not Available 2024 11:08:58 Result Notes None recorded. Problems Name Problem SNOMED Code Status Onset Date Resolution Date Notes Provider Name and Address Organization Details Recorded Time Sensorin eural hearing loss in right ear 62797783826 100 Active 2016 Sensorin eural hearing loss, unilater al, right ear, with restrict ed hearing on the contrala teral side; Note: Date Diagnose d: 7 11:28 AM (H90.A21 ) ODIN JUNG PA-C [address] [place] [address],[place] [address], [place], [address] , [facility] 5 12:02:55 Mixed conducti ve and sensorin eural hearing loss of left ear 49877505688 107 Active 2016 Mixed conducti ve and sensorin eural hearing loss, unilater al, left ear with restrict ed hearing on the contrala teral side; Note: Date Diagnose d: 7 11:28 AM (H90.A32 ) ODIN JUNG PA-C [address] [place] [address],[place] [address], [place], [address] , [facility] 5 12:02:55 Abnormal auditory percepti on 65919533 Active 2017 Other abnormal auditory percepti ons, right ear; Note: Date Diagnose d: 8 12:02 PM (H93.291 ) Other abnormal auditory percepti ons, left ear; Note: Date Diagnose d: 7 11:55 AM (H93.292 ) ; Start Date : 03/17/20 17 Not Available [facility] 4 02:48:41 Bilatera l tympanos clerosis 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 2017 Tympanos clerosis , bilatera l; Note: Date Diagnose d: 8 11:07 AM (H74.03) ODIN JUNG PA-C [address] [place] [address],[place] [address], [place], [address] , [facility] 5 12:02:55 Sensorin eural hearing loss of bilatera l ears 542583663 Active 2017 Sensorin eural hearing loss, bilatera l; Note: Date Diagnose d: 04/07/2018 11:52 AM (H90.3) Not Available [facility] 4 02:48:37 Disorder of right Eustachi an tube 13512485443 37114 Active 2017 Other specifie d disorder s of Eustachi an tube, right ear; Note: Date Diagnose d: 04/07/2018 11:52 AM (H69.81) Not Available [facility] 4 02:48:42 Chronic serous otitis media of left ear 602302408 Active 2018 Chronic serous otitis media, left ear; Note: Date Diagnose d: 9 12:51 PM (H65.22) Not Available [facility] 4 02:48:38 Posterio r rhinorrh ea 78270561 Active 2019 Postnasa l drip; Note: Date Diagnose d: 0 2:52 PM (R09.82) Not Available [facility] 4 02:48:37 Allergic rhinitis 11182231 Active 2019 Perennia l allergic rhinitis ; Note: Date Diagnose d: 0 9:32 AM (J30.89) Allerg ic rhinitis , unspecif ied; Note: Date Diagnose d: 8 12:05 PM (J30.9) ; Start Date : 02/23/20 18 Not Available [facility] 4 02:48:37 Impacted cerumen of bilatera l ears [id number] 30564 Active 2019 Impacted cerumen, bilatera l; Note: Date Diagnose d: 0 8:50 AM (H61.23) ODIN JUNG PA-C [address] [place] [address], [place], [address] , [facility] - [facility] 5 12:02:55 Bilatera l chronic serous otitis 754899802 Active 2019 Chronic serous otitis media, bilatera l; Note: Date Diagnose d: 0 8:50 AM (H65.23) Note: Date Diagnose d: 0 8:50 AM (H65.23) Not Available [facility] 4 01:02:19 Conducti ve hearing loss, bilatera l 150126344 Active 2019 Conducti ve hearing loss, bilatera l; Note: Date Diagnose d: 0 9:25 AM (H90.0) Not Available [facility] 4 02:48:36 Disorder of left Eustachi an tube 48173697088 34174 Active 2020 Other specifie d disorder s of Eustachi an tube, left ear; Note: Date Diagnose d: 06/24/20 21 9:53 AM (H69.82) Other specifie d disorder s of Eustachi an tube, left ear; Note: Date Diagnose d: 7 11:28 AM (H69.82) ; Start Date : 03/17/20 17 Norman ABARCA [address] [facility] [address], [place], [address] , [facility] 5 10:25:33 Central perforat ion of left tympanic membrane 43897736045 28753 Completed 202204/06/2024 Central perforat ion of tympanic membrane , left ear; Note: Date Diagnose d: 3 4:50 PM (H72.02) Not Available [facility] 4 02:48:41 Bilatera l disorder of Eustachi an tubes 00179712932 82366 Active 2022 Other specifie d disorder s of Eustachi an tube, bilatera l; Note: Date Diagnose d: 3 12:04 PM (H69.83) Other specifie d disorder s of Eustachi an tube, bilatera l; Note: Date Diagnose d: 9 11:56 AM (H69.83) ; Start Date : 05/17/20 19 ODIN JUNG PA-C [address] [facility] [address], [place], [address] , [facility] 5 12:02:55 Otalgia of left ear 2725868311 Active 2022 Otalgia, left ear; Note: Date Diagnose d: 3 12:04 PM (H92.02) Not Available [facility] 4 02:48:40 Mixed conducti ve and sensorin eural hearing loss of right ear 35475946367 105 Active 2022 Mixed conducti ve and sensorin eural hearing loss, unilater al, right ear with restrict ed hearing on the contrala teral side; Note: Date Diagnose d: 3 1:42 PM (H90.A31 ) Not Available [facility] 4 02:48:40 Mixed conducti ve and sensorin eural hearing loss, bilatera l 487843893 Active 2022 Mixed conducti ve and sensorin eural hearing loss, bilatera l; Note: Date Diagnose d: 3 10:43 AM (H90.6) Mixed conducti ve and sensorin eural hearing loss, bilatera l; Note: Date Diagnose d: 8 10:51 AM (H90.6) ; Start Date : 02/23/20 18 Not Available [facility] 4 02:48:42 Sensorin eural hearing loss in left ear 17455426872 109 Active 2022 Sensorin eural hearing loss, unilater al, left ear, with restrict ed hearing on the contrala teral side; Note: Date Diagnose d: 3 1:42 PM (H90.A22 ) Not Available [facility] 4 02:48:36 Seasonal allergic rhinitis 997394425 Active 2023 NICOLAS BRITT MD [address] [place] [address],[place] [address], [place], [address] , [facility] 4 08:52:31 Non-benji rgic rhinitis 28385856364 1 Active 2023 NICOLAS BRITT MD [address] [place] [address],[place] [address], [place], [address] , [place] [facility] 4 08:52:31 Chronic mucoid otitis media of right middle ear 83960273714 20889 Active 2023 NICOLAS BRITT MD [address] [place] [address],[place] [address], [place], [address] , [facility] 4 08:55:34 Problem Notes None recorded. Procedures Surgical History Date Name Laterality Status Provider Name and Address Organization Details Recorded Time 06/06/20 25 Comp Audio with Tymps - 19347 & 22673 completed RUTHANN DUKE, AuD [address] [facility],[address], [address], [facility] - [facility] 06/06/2025 10:24:45 06/06/20 25 Cerumen removal without microscope bilat active ODIN JUNG PA-C [address] [facility],[address], [address], [facility] - [facility] [place] 06/06/2025 12:02:08 09/06/19 25 Tympanometry - 15699 completed CAN MAYORGA, AUD [address] [facility],[address], [address], [facility] - [facility] 09/06/2024 14:55:55 04/30/20 24 Allergy Testing-Full completed AURY ROMERO [address] [facility],[address], [address], [facility] 04/30/2024 10:12:56 Myringotomy Tube Placement completed Meghna Quiros [facility] 04/16/2024 08:39:36 complete repair of rotator cuff completed Meghna Quiros [facility] 04/16/2024 08:39:43 lumpectomy of breast completed Meghna Quiros [facility] 04/16/2024 08:39:48 Imaging Results None recorded. Procedure Notes None recorded. Medical Equipment None Reported. Allergies Allergen ID Allergen Name Allergen Category Reaction Reaction Severity Criticality Documentation Date Start Date Code Code System Note Provider Name and Address Organization Details Recorded Time 55974 naproxen medicatio n other Not available Not available 01/17/2024 7258 RxNorm React ion: unkno wn, unspe cifie d;; Not Available [facility] 01:04:54 Medications Name Sig Start Date Stop [...] eye drops 09/20 completed Medicati on ID: [id number] Eris burt d By Name: Nicolas Britt M.D. Bra nd Name: ofloxaci n Send Method: E-Prescr ibed Sub s Allowed: subs OK Speci al Instruct ion: apply 5 drops to each ear BID x 3 days Med icationG enericNa me: ofloxaci n Not Available Not Available Not Available Medrol (Aurelio) 4 mg tablets in a dose pack 04/16 completed Medicati on ID: [id number] D uration Value: 6 Brand Name: Medrol (Aurelio) Se nd Method: E-Prescr ibed Sub s Allowed: subs OK Joseph al Instruct ion: Take 1 pack as [...] eye drops 04/16 completed Medicati on ID: [id number] D uration Value: 14 Brand Name: Ciloxan [...] a day 04/16 completed Medicati on ID: [id number] D uration Value: 14 Brand Name: ofloxaci [...] ne propionat e 50 mcg/actua tion nasal spray,aleisa pension USE 2 SPRAY(S) IN EACH NOSTRIL ONCE DAILY 04/30 completed Not Available Not Available Not Available ipratropi um bromide 21 mcg (0.03 %) nasal spray 2 spray into both nostrils 04/30 completed Medicati on ID: [id number] D uration Value: 30 Prescri bed By [...] aerosol inhaler 06/24 completed Medicati on ID: [id number] D uration Value: 50 Brand Name: Ventolin HFA Send Method: E-Prescr ibed Sub s Allowed: subs OK Medic ationGen ericName : Ventolin HFA Not Available Not Available Not Available neomycin- polymyxin -hydrocor t 3.5 mg-10,000 unit/mL-1 % ear drops,[place] p Instill 4 drop twice a day 04/16 completed Medicati on ID: [id number] D uration Value: 14 Brand Name: neomycin -polymyx in-HC Se nd Method: E-Prescr ibed Sub s Allowed: subs OK Medic ationGen ericName : neomycin -polymyx in-HC Not Available Not Available Not Available TobraDex 0.3 %-0.1 % eye drops,[place] pension 11/23 completed Medicati on ID: [id number] D uration Value: 14 Prescri bed By [...] Available Not Available Not Avai lable Vitals None Recorded Social History None recorded. Functional Status None recorded. Mental Status None recorded. Family History Nothing Reported. Medical History Condition Response Allergies/Hayfever N Heart Problems N Anxiety N Tonsil Infections N Emphysema N Migraines N Thyroid Problems N COPD N Depression N Developmental Delay N Glaucoma N Nasal or Sinus Problems Y Anemia N Immune System Disorder N Anesthesia Complications N Heart Attack ([place]) N Other Skin Condition N Diabetes N Rhinitis N Bleeding Disorder N Food Allergy N Hearing Loss Y Arthritis Y Hyperlipidemia N Cancer Y Stroke N Dementia N Nasal polyps N Asthma N Sleep Disorder N High Cholesterol N GERD/Reflux N Liver Disease N Headaches N Fibromyalgia N Hypertension N Speech Delay N Kidney Disease N Gynecological HistoryNo gynecological history recorded. Obstetrics History GPAL:G 0 P 0 0 0 0 Past Encounters Encounter ID Performer Location Encounter Start Date Encounter Closed Date Diagnosis/Indication Diagnosis SNOMED-CT Code Diagnosis ICD10 Code Diagnosis IMO Codes Diagnosis Note [id number] ODIN JUNG PA-C [facility] [address] [address] 06/06/2025 09:17:53 06/06/2025 10:45:04 Impacted cerumen of bilateral ears [id number] 027350 H61.23 Bilateral disorder of Eustachian tubes 0229455829 241736 H69.83 Bilateral tympanosclerosis 2627470965 9786310 H74.03 Mixed cond uctive and sensorineural hearing loss of left ear 1844011095 9107 H90.A32 Sensorineu ral hearing loss in right ear 5786881663 9100 H90.A21 [id number] Norman ABARCA [facility] [address] [address] 06/06/2025 10:06:03 06/06/2025 10:26:00 Disorder of left Eustachian tube 6609127620 195173 H69.82 Audiologic al evaluation results: Right ear: Severe high frequency sensorineu ral hearing loss with excellent word recognitio n. Left ear: Mild mixed hearing loss rising to normal hearing sloping to severe sensorineu ral hearing loss with excellent word recognitio n. Tympanomet ry: Right Ear:Type A Left Ear:Type C Health Concerns Section Related Observation LastModified by Organization Detai ls LastModified Time None Recorded Concern Status LastModified by Organization Details LastModified Time None Recorded Payers Encounter Date Sequence Insurance Name Policy Number Policy Henderson Covered Member ID Henderson Member ID Guarantor Name 06/06/2025 1 [place] [email or web address] Rachel Forbes [id number] Rachel Forbes 06/06/2025 2 [place] [id number] Rachel Forbes [id number] Rachel Forbes OBGyn Episode No OBEpisode recorded.
== END 2025-06-06 15:01 | disposition home or self-care (01) ==
LOC: HO.HMCC 13:31
PROVIDERS: PCP Internal Medicine; Visit Provider Internal Medicine
DX: Z00.00 Encounter for general adult medical examination without abnormal findings (principal); M81.0 Age-related osteoporosis without current pathological fracture; C50.919 Malignant neoplasm of unspecified site of unspecified female breast; Z23 Encounter for immunization

== ENCOUNTER → 2025-06-06 13:30 | Outpatient (BNVA) | payer MEDICARE, SELFPAY | PROVIDERS: PCP Internal Medicine; Visit Provider Internal Medicine | DX: Z00.00 Encounter for general adult medical examination without abnormal findings (principal); I10 Essential (primary) hypertension; M81.0 Age-related osteoporosis without current pathological fracture; C50.919 Malignant neoplasm of unspecified site of unspecified female breast; E55.9 Vitamin D deficiency, unspecified; Z23 Encounter for immunization | CPT/HCPCS: 90471; 90677; 96127 ==